=== PATIENT | female | born 1955 | race Caucasian/White ===

== ENCOUNTER → 2019-05-26 09:45 | Outpatient (CLI) | payer MEDICAID, SELFPAY ==
[2019-05-30 16:42] LABS: Trileptal-Oxcarbazepine 4 ug/mL (10-35)
== END ==
PROVIDERS: PCP Internal Medicine Infectious Disease
DX: G40.009 Localization-related (focal) (partial) idiopathic epilepsy and epileptic syndromes with seizures of localized onset, not intractable, without status epilepticus (principal)
CPT/HCPCS: 36415; 80201; 82542

== ENCOUNTER 2019-07-25 12:38 | Emergency (ER) | payer MEDICAID, SELFPAY ==
[2019-07-25 12:39] VITALS: BP 112/65; PULSE 105; RESP 30; TEMP 36.7; O2SAT 98; BMI 20.8
--- NOTE | 2019-07-25 12:56 | RAD_ITS ---
STUDY: X-RAY CHEST REASON FOR EXAM: Female, 64 years old. PT TO ED VIA EMS, PT HAD MULTIPLE SEIZURES TODAY. ONGOING COUGH WITH INTERMITTENT FEVERS. TECHNIQUE: AP and lateral views of the chest. COMPARISON: None. FINDINGS: EKG electrodes are seen. There is hyperinflation of the lungs consistent with chronic obstructive lung disease (COPD). There is no demonstrated pleural abnormality. Normal size heart. Normal mediastinum and ramiro. Normal visualized pulmonary arteries. Normal visualized aortic arch and descending thoracic aorta. There are mild degenerative changes of the visualized thoracic spine. Normal visualized ribs, clavicles, and shoulders. Surgical clips are seen in the right upper quadrant. RAD/Chest PA and Lateral IMPRESSION: Hyperinflation. Electronically Signed: Gordy Matias, at 14:11 EDT , Service support ,
--- NOTE | 2019-07-25 12:56 | EKG12_ITS ---
Test Reason : CP Blood Pressure : / mmHG Vent. Rate : 111 BPM Atrial Rate : 111 BPM P-R Int : 174 ms QRS Dur : 070 ms QT Int : 324 ms P-R-T Axes : 082 064 073 degrees QTc Int : 440 ms Sinus tachycardia Otherwise normal ECG Confirmed by VITOR DAVISON, CHERIE ([id number]), gsa coordinator ANDRES WEST ([id number]) on 07/31/2019 11:15:58 AM Referred By: BRIAN Confirmed By:FAYE ADLER MD
--- NOTE | 2019-07-25 12:59 | ED.DCSUM_ITS ---
- ER Visit Summary Date of Service: 07/25/19 Chief Complaint: Seizure History of Present Illness: The patient is a 64 F who presents with 3-4 seizures that occurred today. Family reports that they were generalized tonic-clonic seizures. Patient has a history of seizures. Patient states she was having a l eft frontal headache prior to the seizure. Patient denies any incontinence of urine or stool. Patient denies biting her tongue or cheek. Patient admits to a recent cough. Patient admits to some rhinorrhea. Patient admits to subjective chills. Patient admits to some dysuria and frequency. Son states the patient has been eating grapefruit recently. He reports that when the patient eats a lot of grapefruit she develops seizures. Physical Examination: Vital signs are stable. Patient is afebrile. Patient is in no acute distress. Oral mucosa is pink and moist. There are no abrasions of the oral mucosa or tongue. Neck is supple. Trachea is midline. There is no JVD noted. Heart was regular rate and rhythm. Lungs are clear and equal bilaterally. Abdomen is soft. Bowel sounds are normal. There is no tenderness. There is no rebound or guarding noted. Skin is warm dry. Cranial nerves II through XII are intact. There are no focal motor or sensory deficits noted. Extremities are intact. There is no calf tenderness or edema. Test Results: EKG showed sinus tachycardia with a rate of 111. There are no acute ST or T wave changes. PA and lateral chest x-ray was obtained. There is no acute cardiopulmonary process. This was interpreted by myself and the radiologist. CBC, comprehensive metabolic profile, and urinalysis were obtained and were essentially within normal limits. Rapid flu was negative. Rapid strep was negative. Emergency Department Course and Treatment: Patient did have a generalized tonic- clonic seizure here in the emergency department. Family states this was typical of her seizure that she had at home. Patient was given a dose of Ativan here. Patient was complaining of a headache after her seizure. Patient was given a dose of Tylenol for that. Patient was instructed to avoid eating grapefruit and grapefruit juice. Patient was instructed to continue her medications as previously prescribed. Patient was instructed to follow-up with her primary care physician in 5 to 7 days. Patient and family understood and were agreeable with the plan. All questions were answered. Disposition: Discharge home Impression: Seizure disorder with breakthrough seizure This note was generated with [employer] dictation software. It may contain incorrect words, spelling, and punctuation that were not noted in review of the chart prior to signing ED Disposition - Plan for ED Patient: Disposition: Home or Assisted Living Diagnosis: Seizure disorder Instructions: SEIZURE, Recurrent [Adult] Referrals: Deneen Gonzalez MD [Primary Care Provider] - 5-7 Days
[2019-07-25 13:12] LABS: Absolute Neutrophil Count 5.2 X10^3/uL (2.0-7.7); Basophil# 0.02 X10^3/uL; Basophil% 0.3 % (0-1); Eosinophil# 0.39 X10^3/uL; Eosinophils% 5.2 % (0-5); Hematocrit 37.6 % (37-47); Hemoglobin 11.6 g/dL (12.0-15.0); Lymphocyte % 17.5 % (19-41); Mean Corp Hgb Conc 30.9 g/dL (32-36); Mean Corpuscular Hgb 30.4 pg (27.0-32.0); Mean Corpuscular Volume 98.4 fL (81-99); Mean Platelet Vol. 10.5 fl (6.2-12.0); Monocyte# 0.56 X10^3/uL; Monocyte% 7.5 % (0-10); NRBC Flagged by Analyzer 0 % (0-5); Neutrophil # 5.15 X10^3/uL (2.7-7.7); Neutrophil % 69.2 % (47-70); Platelet Count 187 K/mm3 (150-450); RBC Distribution Width CV 13.6 % (11.6-14.6); RBC Distribution Width SD 48.9 fl (35.1-43.9); Red Blood Count 3.82 M/mm3 (4.2-5.4); White Blood Count 7.4 K/mm3 (4.4-11.0)
[2019-07-25 13:24] LABS: ALB/GLOB Ratio 0.8 RATIO (0.9-2.4); AST(SGOT) 13 U/L (15-37); Alanine Aminotransfer ALT/SGPT 15 U/L (13-56); Alkaline Phosphatase 76 U/L (45-117); Anion Gap 7 (5-15); BUN 23 mg/dL (7-18); BUN/Creat Ratio 22.5 RATIO (10-20); Calcium,Total 8.1 mg/dL (8.5-10.1); Chloride 108 mmol/L (98-107); Creatinine, Serum 1.02 mg/dL (0.55-1.02); EST Glomerular Filtration Rate 58 mL/min (>60); Est Glom Filt Rate - Afr Amer 70 mL/min (>60); Estimated Creatinine Clearance 48.12 ml/min; Glucose 125 mg/dL (74-106); Potassium 3.6 mmol/L (3.5-5.1); Sodium Level 141 mmol/L (136-145)
[2019-07-25] MEDS: 0.9% Normal Saline 1,000 ML 1000 ML IV (13:29)
--- NOTE | 2019-07-25 13:30 | ED.RN ---
PT FAMILYCALLS OUT PT SEIZING.PT IMMEDIATELY ALERT AND TALKING WITHIN 2 MINUTES OF SEIZURE. ATIVAN GIVEN IV
[2019-07-25] MEDS: LORazepam 2 MG/ML Syringe 1 MG IV (13:31)
[2019-07-25 13:33] VITALS: BP 124/60; PULSE 106; RESP 18; TEMP 36.6; O2SAT 99
[2019-07-25 14:23] LABS: Bacteria 0 SEEN /hpf (None Seen); Mucous, Urine 0 SEEN /hpf (<or=2+); Squamous Epithelial Cells - UA 0 SEEN /hpf (5-10); White Blood Cells 0 SEEN /hpf (0-5)
[2019-07-25 14:25] LABS: Color, Urine Yellow (Yellow); Glucose, Dipstick Normal (Normal); Ketone-Dipstick Negative (Negative); Leukocyte Esterase-Dipstick Negative /ul (Negative); Nitrite-Dipstick Negative (Negative); Occult Blood-Urine 50 /ul (Negative); Protein-Dipstick Negative (Negative); Urine Bilirubin Dipstick Negative (Negative); Urine Clarity Clear (Clear); Urine Urobilinogen Normal (Normal)
[2019-07-25 14:34] LABS: Red Blood Cells-Urine 0-5 SEEN /hpf (0-5)
[2019-07-25] MEDS: Acetaminophen 325 MG Tablet 1000 MG PO (15:25)
--- NOTE | 2019-07-25 15:27 | ED.RN ---
THIS RN CALLED TO ROOM BY PT'S SON, STATES SHE'S HAVING ANOTHER SEIZURE. PT IN BED WITH ALL EXTREMITIES MOVING IN RANDOM FASHION. EPISODE LASTED APPROX 60 SECONDS. PT OPENED EYES AFTER AND ABLE TO SIT UP AND SPEAK, TAKE ORAL MEDS. PT WAS AWARE OF ALL CONVERSATION BETWEEN THIS RN AND SON DURING EPISODE. MD AND PRIMARY RN NOTIFIED, WILL CONTINUE TO OBSERVE AT THIS TIME.
[2019-07-25 16:09] VITALS: BP 91/49; PULSE 100; RESP 16; TEMP 37.9; O2SAT 100
== END 2019-07-25 16:10 | disposition home or self-care (01) ==
PROVIDERS: Emergency Provider Emergency Medicine; PCP Internal Medicine Infectious Disease
DX: G40.409 Other generalized epilepsy and epileptic syndromes, not intractable, without status epilepticus (principal); E11.9 Type 2 diabetes mellitus without complications; Z79.84 Long term (current) use of oral hypoglycemic drugs
CPT/HCPCS: 71046; 80053; 81001; 85025; 87804; 87880; 93005; 96361; 96374; 99285; J7030; A4216

== ENCOUNTER → 2020-02-07 | Outpatient (CLI) | payer MEDICAID, SELFPAY ==
--- NOTE | 2020-02-07 08:40 | US_ITS ---
STUDY: ABDOMINAL ULTRASOUND - RIGHT UPPER QUADRANT REASON FOR VISIT: Female, 64 years old ABNORMAL WEIGHT LOSS WITH NAUSEA AND VOMITING TECHNIQUE: Ultrasound evaluation of the right upper quadrant was performed with real-time and static vincent-scale imaging. TECHNICAL QUALITY: Adequate. COMPARISON: None. FINDINGS: Liver: The liver measures 17.4 cm. There is normal echogenicity of the liver. The bile ducts are within normal limits. There is hepatic color flow. The direction of portal flow is hepatopetal. The portal vein is prominent measuring 1.3 cm in AP dimension. There is no demonstrated mass lesion. Gallbladder: The patient is status post cholecystectomy. Common Bile Duct (C.B.D.): The common bile duct measures 5 mm. Pancreas: Normal size of the head, body and tail of the pancreas. There is normal echogenicity of the pancreas. There is no demonstrated pancreatic mass or cyst. Right Kidney: Normal size of the right kidney. The right kidney measures 9.7 cm x 4.8 cm x 3.4 cm. Normal renal cortex. The right cortex measures 1.1 cm. There is no demonstrated renal mass or cyst. There is no right hydronephrosis. US/Abdomen Limited IMPRESSION: Status post cholecystectomy. No abnormality is seen. Electronically Signed: Gordy Matias, at 14:34 EDT , Service support ,
--- NOTE | 2020-02-07 10:00 | RAD_ITS ---
STUDY: X-RAY - ESOPHAGUS (BARIUM SWALLOW) with FLUOROSCOPY REASON FOR EXAM: Female, 64 years old. Dysphagia prox esoph. Soreness prox esoph TECHNIQUE: 20 view(s) of the esophagus were obtained following swallowing of barium. FLUOROSCOPY TIME (if supplied): (0:35) minutes/seconds COMPARISON: None. FINDINGS: There is no demonstrated esophageal foreign body. There is no demonstrated stricture or mucosal abnormality. Normal gastroesophageal junction, without a demonstrated hiatal hernia. The patient ingested a 12 mm tablet of barium without any difficulty. There is atherosclerotic tortuosity of the aortic arch and descending thoracic aorta. Normal visualized pulmonary parenchyma. Normal visualized osseous structures of the thorax. RAD/Esophagus Single Contrast IMPRESSION: Normal plain film x-ray examination (barium swallow) of the esophagus. Electronically Signed: Gordy Matias, at 15:22 EDT , Service support ,
== END | disposition home or self-care (01) ==
LOC: RAD 08:38
PROVIDERS: PCP Family Medicine
DX: R13.10 Dysphagia, unspecified (principal); R11.2 Nausea with vomiting, unspecified; R63.4 Abnormal weight loss
CPT/HCPCS: 74220; 76705

== ENCOUNTER 2020-03-21 19:17 | Emergency (ER) | payer MEDICAID, SELFPAY ==
[2020-03-21 19:19] VITALS: BP 134/65; PULSE 89; RESP 18; TEMP 37; O2SAT 100; BMI 25.4
--- NOTE | 2020-03-21 19:23 | ED.VIS.GEN ---
History of Present Illness Chief Complaint: Lower Extremity Injury Informant: Patient Onset: Today Context: Sudden Onset Timing: Continuous Current Severity: Moderate Maximum Severity: Moderate Narrative: Patient is a 64-year-old female who presents to the emergency department with left ankle and foot injury. She states that she normally ambulates with a cane. She heard a commotion from her backyard. She states she walked out because she thought it was her dogs. She twisted her foot and fell to the ground. She has been able to bear weight because of pain. She denies striking her head. She denies other injury. She is otherwise been in her normal state of health. Prior similar symptoms: No Recent Illness/Hospitalization: No Past Medical History - Allergies and Home Meds Allergies/Adverse Reactions: Allergies No Known Allergies Allergy (Verified 07/25/19 12:38) Primary Care Physician: Maynor Singh MD [Primary Care Provider] - Prior records reviewed: Yes Past Medical History: - - Seizures, migraines, COPD Surgical History: noncontributory Smoking Status: Never smoker Review of Systems General: Denies: Chills, Fever, Sweats Eyes: Denies: Visual changes - bilaterally, Diplopia ENT: Denies: Rhinorrhea, Sore throat Cardiovascular: Denies: Chest pain, Palpitations Respiratory: Denies: Dyspnea, Cough, Dyspnea on exertion Gastrointestinal: Denies: Abdominal pain, Nausea, Vomiting, Diarrhea, Melena, Hematochezia Genitourinary: Denies: Dysuria, Hematuria, Frequency Musculoskeletal: Denies: Back pain, Extremity Pain Skin: Denies: Rash, Wounds Neurological: Denies: Headache, Weakness, Numbness Physical Exam Vital Signs/Narrative: Vital Signs Temp Pulse Resp BP Pulse Ox 03/21/20 19:19 98.6 F 89 18 134/65 H 100 Inital Vital Signs reviewed: Yes General: Well nourished, Well developed, No Acute Distress Head: Normocephalic, Atraumatic Eyes: Perrl, EOMI ENT: Moist mucous membranes, No rhinorrhea Neck: Supple, Nontender Cardiovascular: Regular rate, Regular rhythm, No murmurs Respiratory: No distress, CTA bilaterally, Chest nontender Abdomen: Soft, Nontender, Nondistended, Normal bowel sounds Back: Nontender, Normal Inspection Extremities: No edema, Tenderness - Tender over the left lateral malleolus. No pain at the proximal fibula. Mild pain at the head of the fifth metatarsal. Baugh negative. Normal pulses. Skin: Normal color, No rash Neurological: Alert, Oriented x3, Cranial nerves II-XII grossly intact, Normal Strength, Normal Sensation Psychological: Normal affect, Normal Mood Diagnostic/Tx/Re-eval Clinical Impression(s) from Imaging Studies Ankle X-Ray 03/21/20 19:30 IMPRESSION: Soft tissue swelling without underlying fracture or dislocation. Electronically Signed: Sharon Heart MD at 20:17 EST , Service support , Foot X-Ray 03/21/20 19:30 IMPRESSION: Negative for fracture or dislocation. Dorsal enthesophyte and plantar spurring of the calcaneus. Electronically Signed: Sharon Heart MD at 20:16 EST , Service support , - Medical Decision Making The patient presents with left ankle and foot pain. She is neurovascular intact. Baugh was negative. I did obtain plain films. These were reviewed by myself and the radiologist. There is no evidence of acute fracture or dislocation. I do feel that her symptoms are likely secondary to ligamentous sprain. Patient was placed in a boot orthosis for comfort. She will be discharged home. Impression 1. Left lateral ankle sprain ED Disposition - Plan for ED Patient: Instructions: ED Sprain Ankle Referrals: Maynor Singh MD [Primary Care Provider] -
[2020-03-21] MEDS: Morphine 4 MG/ML Syringe IM (19:29)
--- NOTE | 2020-03-21 19:30 | RAD_ITS ---
STUDY: X-RAY - LEFT ANKLE REASON FOR EXAM: Female, 64 years old. FOOT WAS NUMB WHEN SHE WENT TO STAND AND SHE FELL. LEFT LATERAL MALLEOLAR PAIN AND SWELLING TECHNIQUE: 3 view(s) of the ankle. COMPARISON: None. FINDINGS: Normal visualized distal tibia and fibula. Normal medial and lateral malleoli. Normal tibiotalar articulation and ankle mortise. Normal visualized talus and calcaneus. Dorsal enthesophyte and plantar spurring of the calcaneus The visualized subtalar, talonavicular, calcaneocuboid and tarsal articulations are normal. Soft tissue swelling. RAD/Ankle min 3 Views IMPRESSION: Soft tissue swelling without underlying fracture or dislocation. Electronically Signed: Sharon Heart MD at 20:17 EST , Service support ,
--- NOTE | 2020-03-21 19:30 | RAD_ITS ---
STUDY: X-RAY - LEFT FOOT CLINICAL: Female, 64 years old. FOOT WAS NUMB WHEN SHE WENT TO STAND UP AND SHE FELL. PAIN LATERAL MALLEOLAR AREA TECHNIQUE: 3 view(s) of the foot. COMPARISON: None. FINDINGS: Normal talus, calcaneus, and tarsal bones. Dorsal enthesophyte and plantar spur of the calcaneus Normal visualized subtalar, talonavicular, calcaneocuboid, tarsal and tarsometatarsal articulations. Normal metatarsi. Normal metatarsophalangeal joint of the great toe. Normal tibial and fibular sesamoid bones. Normal interphalangeal joint of the great toe. Normal phalanges of the great toe. Normal second through fifth metatarsophalangeal joints. Normal interphalangeal joints and phalanges of the lesser toes. The soft tissue structures are unremarkable. RAD/Foot min 3 Views IMPRESSION: Negative for fracture or dislocation. Dorsal enthesophyte and plantar spurring of the calcaneus. Electronically Signed: Sharon Heart MD at 20:16 EST , Service support ,
[2020-03-21 20:54] VITALS: RESP 18
== END 2020-03-21 20:55 | disposition home or self-care (01) ==
LOC: ED 20:47
PROVIDERS: Emergency Provider Emergency Medicine; PCP Family Medicine
DX: S93.402A Sprain of unspecified ligament of left ankle, initial encounter (principal); J44.9 Chronic obstructive pulmonary disease, unspecified; X50.1XXA Overexertion from prolonged static or awkward postures, initial encounter; Y93.01 Activity, walking, marching and hiking; Y92.007 Garden or yard of unspecified non-institutional (private) residence as the place of occurrence of the external cause; Y99.8 Other external cause status
CPT/HCPCS: 73610; 73630; 96372; 99284

== ENCOUNTER 2020-04-09 19:28 | Emergency (ER) | payer MEDICAID, SELFPAY ==
[2020-04-09 19:32] VITALS: BP 153/72; PULSE 81; RESP 18; TEMP 36.3; O2SAT 98; BMI 24.7
[2020-04-09 21:29] VITALS: BP 134/78; PULSE 75
--- NOTE | 2020-04-09 21:30 | ED.DCSUM_ITS ---
History of Present Illness Chief Complaint: Seizure Narrative: This patient is a 64-year-old female who presents after a seizure. She had a seizure that lasted about 3 to 4 minutes per family. The patient does have a history of a seizure disorder. She is on topiramate and carbamazepine. She has been compliant. Her last seizure was about 1 month ago. She has had some urinary incontinence in the mornings but otherwise no recent illness. No fever chest pain shortness of breath cough vomiting or diarrhea. She complains of mild headache. Past Medical History - Allergies and Home Meds Allergies/Adverse Reactions: Allergies No Known Allergies Allergy (Verified 04/09/20 19:32) Primary Care Physician: Maynor Singh MD [Primary Care Provider] - Past Medical History: - - Diabetes, hyperlipidemia, epilepsy Surgical History: noncontributory Smoking Status: Never smoker Review of Systems All systems negative except as indicated General: Denies: Fever - Disorder Eyes: Denies: Visual changes - bilaterally ENT: Denies: Bilateral ear pain Cardiovascular: Denies: Chest pain Respiratory: Denies: Dyspnea Gastrointestinal: Denies: Abdominal pain, Nausea, Vomiting, Diarrhea Genitourinary: Reports: - - Urinary incontinence Musculoskeletal: Denies: Myalgias, Arthralgias Neurological: Reports: Headache, - - Seizure Physical Exam Vital Signs/Narrative: Vital Signs Temp Pulse Resp BP Pulse Ox 04/09/20 21:29 75 134/78 H 04/09/20 19:32 97.4 F L 81 18 153/72 H 98 Inital Vital Signs reviewed: Yes General: Well nourished, Well developed Head: Normocephalic Eyes: EOMI ENT: Moist mucous membranes Neck: Supple Cardiovascular: Regular rate, Regular rhythm Respiratory: No distress, CTA bilaterally Abdomen: Soft, Nontender Extremities: Nontender Skin: Normal color Neurological: Alert, - - No focal or lateralizing neurological deficits normal strength normal sensation Psychological: Normal affect Diagnostic/Tx/Re-eval Laboratory Results 04/09/20 04/09/20 04/09/20 21:40 21:40 21:40 WBC 8.3 RBC 4.05 L Hgb 12.7 Hct 39.0 MCV 96.3 MCH 31.4 MCHC 32.6 RDW Std Deviation 42.5 RDW Coeff of Debra 12.1 Plt Count 221 MPV 10.0 Immature Gran % (Auto) 0.400 Neut % (Auto) 70.8 H Lymph % (Auto) 16.7 L [place] % (Auto) 7.3 Eos % (Auto) 4.2 Baso % (Auto) 0.6 Absolute Neuts (auto) 5.9 Absolute Lymphs (auto) 1.39 Nucleated RBC % 0 Sodium 138 Potassium 5.2 H Chloride 106 Carbon Dioxide 30.0 Anion Gap 2 L BUN 16 Creatinine 1.34 H Estim Creat Clear Calc 36.63 Est GFR (MDRD) Af Amer 51 L Est GFR (MDRD) Non-Af 42 L BUN/Creatinine Ratio 11.9 Glucose 141 H Calcium 8.3 L Urine Color Urine Clarity Urine pH Ur Specific [place] Urine Protein Urine Glucose (UA) Urine Ketones Urine Occult Blood Urine Nitrite Urine Bilirubin Urine Urobilinogen Ur Leukocyte Esterase Urine RBC Urine WBC Ur Squamous Epith Cells Urine Bacteria Urine Mucus Carbamazepine < 0.5 L 04/09/20 21:50 WBC RBC Hgb Hct MCV MCH MCHC RDW Std Deviation RDW Coeff of Debra Plt Count MPV Immature Gran % (Auto) Neut % (Auto) Lymph % (Auto) [place] % (Auto) Eos % (Auto) Baso % (Auto) Absolute Neuts (auto) Absolute Lymphs (auto) Nucleated RBC % Sodium Potassium Chloride Carbon Dioxide Anion Gap BUN Creatinine Estim Creat Clear Calc Est GFR (MDRD) Af Amer Est GFR (MDRD) Non-Af BUN/Creatinine Ratio Glucose Calcium Urine Color Yellow Urine Clarity Clear Urine pH 6.0 Ur Specific [place] 1.020 Urine Protein Negative Urine Glucose (UA) 100 H Urine Ketones Negative Urine Occult Blood Negative Urine Nitrite Negative Urine Bilirubin Negative Urine Urobilinogen 1 H Ur Leukocyte Esterase 25 H Urine RBC 0 SEEN Urine WBC 0-5 SEEN Ur Squamous Epith Cells 0 SEEN Urine Bacteria RARE Urine Mucus 0 SEEN Carbamazepine - Medical Decision Making Labs as above notable for mild elevation of creatinine from previous. Patient was given IV fluids. No UTI. Carbamazepine level was undetectable. Advised to take all medications as prescribed and follow-up with her primary care provider. She does understand return for new or worsening symptoms and was discharged home. ED Disposition - Plan for ED Patient: Disposition: Home or Assisted Living Diagnosis: Seizure Instructions: ED Seizure, Recurrent (Adult) Referrals: Maynor Singh MD [Primary Care Provider] -
[2020-04-09 21:45] LABS: Absolute Lymphocyte Count 1.39 X10^3/uL (0.83-4.51); Absolute Neutrophil Count 5.9 X10^3/uL (2.0-7.7); Basophil# 0.05 X10^3/uL; Basophil% 0.6 % (0-1); Eosinophil# 0.35 X10^3/uL; Eosinophils% 4.2 % (0-5); Hemoglobin 12.7 g/dL (12.0-15.0); Lymphocyte # 1.39 X10^3/ul (4.0); Lymphocyte % 16.7 % (19-41); Mean Corp Hgb Conc 32.6 g/dL (32-36); Mean Corpuscular Hgb 31.4 pg (27.0-32.0); Mean Corpuscular Volume 96.3 fL (81-99); Monocyte# 0.61 X10^3/uL; Monocyte% 7.3 % (0-10); NRBC Flagged by Analyzer 0 % (0-5); Neutrophil % 70.8 % (47-70); Platelet Count 221 K/mm3 (150-450); RBC Distribution Width CV 12.1 % (11.6-14.6); RBC Distribution Width SD 42.5 fl (35.1-43.9); Red Blood Count 4.05 M/mm3 (4.2-5.4); White Blood Count 8.3 K/mm3 (4.4-11.0)
[2020-04-09 22:00] LABS: Mucous, Urine 0 SEEN /hpf (<or=2+); Red Blood Cells-Urine 0 SEEN /hpf (0-5); Squamous Epithelial Cells - UA 0 SEEN /hpf (5-10)
[2020-04-09 22:03] LABS: Color, Urine Yellow (Yellow); Glucose, Dipstick 100 mg/dl (Normal); Ketone-Dipstick Negative (Negative); Leukocyte Esterase-Dipstick 25 /ul (Negative); Nitrite-Dipstick Negative (Negative); Occult Blood-Urine Negative /ul (Negative); Protein-Dipstick Negative (Negative); Urine Bilirubin Dipstick Negative (Negative); Urine Clarity Clear (Clear); Urine Urobilinogen 1 mg/dl (Normal)
[2020-04-09 22:06] LABS: Anion Gap 2 (5-15); BUN 16 mg/dL (7-18); BUN/Creat Ratio 11.9 RATIO (10-20); Calcium,Total 8.3 mg/dL (8.5-10.1); Chloride 106 mmol/L (98-107); Creatinine, Serum 1.34 mg/dL (0.55-1.02); EST Glomerular Filtration Rate 42 mL/min (>60); Est Glom Filt Rate - Afr Amer 51 mL/min (>60); Estimated Creatinine Clearance 36.63 ml/min; Glucose 141 mg/dL (74-106); Potassium 5.2 mmol/L (3.5-5.1); Sodium Level 138 mmol/L (136-145)
[2020-04-09 22:11] LABS: Bacteria RARE /hpf (None Seen); White Blood Cells 0-5 SEEN /hpf (0-5)
[2020-04-09 22:43] LABS: Carbamazepine (Tegretol) < 0.5 ug/mL (4.0-12.0)
[2020-04-15 15:34] LABS: Topiramate < 1.0 ug/mL (2.0-25.0)
== END 2020-04-09 23:21 | disposition home or self-care (01) ==
PROVIDERS: Emergency Provider Emergency Medicine; PCP Family Medicine
DX: G40.909 Epilepsy, unspecified, not intractable, without status epilepticus (principal); E78.5 Hyperlipidemia, unspecified; E11.9 Type 2 diabetes mellitus without complications; Z79.84 Long term (current) use of oral hypoglycemic drugs; Z79.899 Other long term (current) drug therapy
CPT/HCPCS: 80048; 80156; 80201; 81001; 85025; 99285; A4216

== ENCOUNTER 2020-04-20 11:15 | Emergency (ER) | payer MEDICAID, SELFPAY ==
[2020-04-20 11:18] VITALS: BP 154/91; PULSE 74; RESP 16; TEMP 36.7; O2SAT 98; BMI 24.0
--- NOTE | 2020-04-20 12:38 | ED.VIS.GEN ---
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 She has been having diarrhea and supposed have a colonoscopy on Wednesday. She tells me that today while having a bowel movement she felt something come out. She was unable to get it back in so she asked her sister to look who advised her to call the ambulance to come to the hospital. Past Medical History - Allergies and Home Meds Allergies/Adverse Reactions: Allergies No Known Allergies Allergy (Verified 04/20/20 11:18) Primary Care Physician: Maynor Singh MD [Primary Care Provider] - As Needed Surgical History: noncontributory Smoking Status: Never smoker Review of Systems General: Denies: Chills, Fever, Sweats Eyes: Denies: Visual changes - bilaterally, Diplopia ENT: Denies: Rhinorrhea, Sore throat Cardiovascular: Denies: Chest pain, Palpitations Respiratory: Denies: Dyspnea, Cough, Dyspnea on exertion Gastrointestinal: Denies: Abdominal pain, Nausea, Vomiting, Diarrhea, Melena, Hematochezia Genitourinary: Denies: Dysuria, Hematuria, Frequency Musculoskeletal: Denies: Back pain, Extremity Pain Skin: Denies: Rash, Wounds Neurological: Denies: Headache, Weakness, Numbness Physical Exam Vital Signs/Narrative: Vital Signs Temp Pulse Resp BP Pulse Ox 04/20/20 11:18 98.1 F 74 16 154/91 H 98 Inital Vital Signs reviewed: Yes General: Well nourished, Well developed, No Acute Distress Head: Normocephalic, Atraumatic Eyes: Perrl, EOMI ENT: Moist mucous membranes, No rhinorrhea Neck: Supple, Nontender Cardiovascular: Regular rate, Regular rhythm, No murmurs Respiratory: No distress, CTA bilaterally, Chest nontender Abdomen: Soft, Nontender, Nondistended, Normal bowel sounds Rectal: - - There is a large rectal prolapse with swollen tissue. Back: Nontender, Normal Inspection Extremities: Nontender, No edema Skin: Normal color, No rash Neurological: Alert, Oriented x3, Cranial nerves II-XII grossly intact, Normal Strength, Normal Sensation Psychological: Normal affect, Normal Mood Diagnostic/Tx/Re-eval - Medical Decision Making Sugar was copiously applied to the rectal mucosa. Using direct pressure the rectum was reduced. The procedure was started but needed to be rapidly terminated due to a coding patient. After that event the procedure is restarted. Patient was advised to talk to her doctors on Wednesday when she goes in for her colonoscopy. ED Disposition - Plan for ED Patient: Disposition: Home or Assisted Living Diagnosis: Rectal prolapse Instructions: ED Rectal Prolapse Referrals: Maynor Singh MD [Primary Care Provider] - As Needed Additional Instructions: You need to inform your doctor on Wednesday that you were in the emergency room with a large rectal prolapse. You may need to see colorectal surgery.
[2020-04-20 12:52] VITALS: BP 124/70; PULSE 74; RESP 16; O2SAT 98
== END 2020-04-20 13:58 | disposition home or self-care (01) ==
LOC: ED 12:43
PROVIDERS: Emergency Provider Emergency Medicine; PCP Family Medicine
DX: K62.3 Rectal prolapse (principal)
CPT/HCPCS: 99284

== ENCOUNTER → 2020-06-03 13:34 | Outpatient (CLI) | payer MEDICARE, MEDICAID, SELFPAY ==
[2020-05-21 08:47] VITALS: BMI 20.8
--- NOTE | 2020-06-03 13:37 | CT_ITS ---
STUDY: CT CHEST WITHOUT CONTRAST REASON FOR EXAM: Female, [address] 2019, GROUND GLASS OPACITIES AND WEIGHT LOSS RADIATION DOSAGE (If Supplied By Facility): CTDIvol = ( 6.81 ) mGy, DLP = ( 272.13 ) mGycm TECHNIQUE: Transaxial imaging was performed without the administration of intravenous contrast material. Multiplanar coronal and sagittal images were reformatted. Individualized dose optimization techniques were used for this CT. COMPARISON: None. FINDINGS: There is evidence of bronchiectasis with a reticular nodular pattern in both upper lobes worse in the right lung apex. Mild degree of tree in bud appearance in the right lower lobe. There is no demonstrated pleural abnormality. There are calcifications of the coronary arteries. There are multiple small lymph nodes within the mediastinum, which are normal in size and morphology most compatible with reactive lymph hyperplasia. Normal hilar regions. Normal unenhanced pulmonary arteries. There is atherosclerotic calcification of the aortic arch with tortuosity and elongation of the aortic arch and descending thoracic aorta. There are degenerative changes of the thoracic spine. Is evidence of a prior surgery level of the gastroesophageal junction. CT/Chest without Contrast IMPRESSION: Bronchiectasis in a reticulonodular pattern in both upper lobes worse in the right lung apex. Similar appearance in the right lower lobe. Electronically Signed: Gordy Matias MD at 14:35 EST , Service support ,
== END ==
PROVIDERS: PCP Family Medicine; Referring Provider Internal Medicine Critical Care Medicine; Visit Provider Internal Medicine Critical Care Medicine
DX: R63.4 Abnormal weight loss (principal); R93.89 Abnormal findings on diagnostic imaging of other specified body structures
CPT/HCPCS: 71250

== ENCOUNTER → 2020-07-09 09:26 | Outpatient (CLI) | payer MEDICARE, MEDICAID, SELFPAY ==
[2020-05-21 08:47] VITALS: BMI 20.8
--- NOTE | 2020-07-09 13:46 | PFTCOMP_ITS ---
COMPLETE PULMONARY FUNCTION TEST INTERPRETATION Brief HPI: Patient is a 65 year old female, currently under the care of myself, who presents to [facility] for complete pulmonary function tests secondary to diagnosis of cough. Respiratory therapist reports good effort and reproducible results. Interpretation: Forced expiration spirometry shows a mild large airways obstructive ventilatory defect with an FEV1 of 75% predicted. There is no significant bronchodilator response by strict ATS criteria. Spirograms are of good quality and plateau slowly, indicating slowly emptying areas of the lungs. The respiratory flow volume loop shows decreased expiratory flow rates at high lung volumes consistent with small airways obstruction. Lung volumes by body plethysmography show an elevated total lung capacity at 6.47 L, 133% predicted. FRC and RV are elevated out of proportion. Lung volume measurements are consistent with hyperinflation and air-trapping. Diffusion capacity by carbon monoxide is normal at 103% predicted. The airway resistance is elevated. No previous pulmonary function tests were available for review. Impression: Irreversible mild large airways obstructive ventilatory defect resulting in air trapping with hyperinflation, but preserved diffusion capacity.
== END ==
PROVIDERS: PCP Family Medicine; Referring Provider Internal Medicine Critical Care Medicine; Visit Provider Internal Medicine Critical Care Medicine
DX: R05 Cough (principal)
CPT/HCPCS: 94060; 94726; 94729

== ENCOUNTER → 2020-07-10 09:31 | Outpatient (CLI) | payer MEDICARE, MEDICAID, SELFPAY ==
[2020-05-21 08:47] VITALS: BMI 20.8
[2020-07-10 10:02] VITALS: PULSE 82; PULSE 84; PULSE 92; PULSE 94; PULSE 96; PULSE 97; PULSE 98; O2SAT 96; O2SAT 97; O2SAT 98
--- NOTE | 2020-07-10 12:51 | PCM.PSN.6M ---
PSN 6 Minute Walk Test - 6 Minute Walk Test 6 Minute Walk Test: 6 Minute Walk Test PSN:6-Minute Walk Test Start: 07/10/20 10:02 Freq: Status: Active Protocol: [id number] Document 07/10/20 10:02 [facility] (Rec: 07/10/20 10:06 [facility] [id number]) 6 Minute Walk Test Date Performed 07/10/20 Time Performed 09:45 Height 5 ft 4 in Weight: 49.895 kg Weight in Pounds 110.[address]: Dr Iniguez Assistive device used: Cane Pre-test Oxygen Delivery Method Room Air Pulse Ox (%) 97 Pulse Rate (60-100 beats/min) 84 Dyspnea Rashmi Scale (0-10) 0 Exertion Rashmi Scale (6-20) 6 1st minute Oxygen Delivery Method Room Air Pulse Ox (%) 96 Pulse Rate (60-100 beats/min) 92 2nd minute Oxygen Delivery Method Room Air Pulse Ox (%) 96 Pulse Rate (60-100 beats/min) 97 3rd minute Oxygen Delivery Method Room Air Pulse Ox (%) 97 Pulse Rate (60-100 beats/min) 98 4th minute Oxygen Delivery Method Room Air Pulse Ox (%) 98 Pulse Rate (60-100 beats/min) 98 5th minute Oxygen Delivery Method Room Air Pulse Ox (%) 96 Pulse Rate (60-100 beats/min) 94 6th minute Oxygen Delivery Method Room Air Pulse Ox (%) 97 Pulse Rate (60-100 beats/min) 96 Dyspnea Rashmi Scale (0-10) 2 Exertion Rashmi Scale (6-20) 11 Post-test Oxygen Delivery Method Room Air Pulse Ox (%) 96 Pulse Rate (60-100 beats/min) 82 Full Laps Walked 11 Partial Lap, Number of Tiles Walked 25 Total Distance Walked (ft) 674 - Interpretation Interpretation: The patient was able to ambulate 674 feet over the course of 6 minutes on room air with the assistance of a cane in no breaks. The patient experienced no significant desaturation or tachycardia during testing. These findings are consistent with a musculoskeletal limitation exercise tolerance. - Recommendations Recommendations: No supplemental oxygen is indicated at this time. Repeat evaluation may be necessary if musculoskeletal condition improves
== END ==
PROVIDERS: PCP Family Medicine; Referring Provider Internal Medicine Critical Care Medicine; Visit Provider Internal Medicine Critical Care Medicine
DX: R05 Cough (principal); R63.4 Abnormal weight loss
CPT/HCPCS: 94618

== ENCOUNTER 2020-11-06 17:09 | Emergency (ER) | payer MEDICARE, MEDICAID, SELFPAY ==
[2020-09-10 07:34] VITALS: BMI 25.9
[2020-11-06 17:12] VITALS: BP 164/85; PULSE 88; RESP 16; TEMP 36.8; O2SAT 99; BMI 27.6
[2020-11-06 17:26] VITALS: BP 146/97; BP 151/61; BP 159/83; PULSE 82; PULSE 96
--- NOTE | 2020-11-06 17:28 | EX.ED.DYSGE1 ---
HPI History of Present Illness Chief Complaint: Seizure Narrative Narrative: Patient presents after a seizure. She has absence seizure she has 1-2 a month, however today seizure although it was similar to prior absence seizure's had a prolonged postictal state of 1 to 2 minutes, normally she has no postictal state. She has had the seizures in the past where she had prolonged postictal state but this is not the norm. Last seizure like today was about 4 to 5 months ago. She has no fever chills cough or congestion. She feels slightly lightheaded when she stands up for the past few days. She has no abdominal pain no back pain. No lower extremity edema. [facility] Medical History (Updated 11/06/20 @ 19:[address] Serge Bai MD) Diabetes H/O absence seizures Home Medications buspirone 10 mg PO DAILY 11/06/20 [History Last Taken Unknown] famotidine 20 mg PO QHS 11/06/20 [History Last Taken Unknown] metformin 500 mg PO DAILY 11/06/20 [History Last Taken Unknown] metronidazole 500 mg PO BID 11/06/20 [History Last Taken Unknown] ondansetron 8 mg PO Q12H PRN 11/06/20 [History Last Taken Unknown] oxcarbazepine 150 mg PO BID 11/06/20 [History Last Taken Unknown] pantoprazole 40 mg PO BID 11/06/20 [History Last Taken Unknown] simvastatin 40 mg PO DAILY 11/06/20 [History Last Taken Unknown] sumatriptan succinate 100 mg PO Q2H PRN 11/06/20 [History Last Taken Unknown] Allergy/AdvReac Type Severity Reaction Status Date / Time corn AdvReac Upset Verified 11/06/20 17:11 Stomach Social History Smoking Status: Never smoker ROS ROS ED ROS Narrative Past medical history: Reviewed Medications: Reviewed Social history: Noncontributory Review of systems: All systems negative except as indicated General: No fever Eyes: No visual changes ENT: No upper airway congestion, normal voice Neck: No neck pain Cardiovascular: No chest pain Respiratory: No shortness of breath or cough Gastrointestinal: No abdominal pain, nausea vomiting or diarrhea Genitourinary: No dysuria Musculoskeletal: Denies myalgias no difficulty with ambulation Skin: No rash Neurological: Absence seizure as in HPI Psych: No recent behavioral changes Hematologic: No easy bleeding or easy bruising EXAM Physical Exam Narrative Exam Narrative: Physical exam General: Well nourished, Well developed, No Acute Distress Head: Normocephalic, Atraumatic Eyes: Conjunctiva not pale ENT: Somewhat dry Neck: Supple, Nontender, No lymphadenopathy Cardiovascular: Regular rate, Regular rhythm Respiratory: No distress, CTA bilaterally Abdomen: Soft, Nontender, Nondistended Back: Nontender, Normal Inspection. Negative for: CVA tenderness Extremities: Nontender, No edema Skin: Normal color, No rash Neurological: Alert, Normal Strength, Normal Sensation Psychological: Normal affect Const Vital Signs: 11/06/20 17:12 11/06/20 17:26 11/06/20 19:14 Temperature 98.2 F Temperature Source Oral Pulse Rate 88 85 Pulse Rate [Lying] 82 Pulse Rate [Sitting] 96 Pulse Rate [Standing] 96 Respiratory Rate 16 17 Blood Pressure 164/85 H 155/83 H Blood Pressure [Lying] 151/61 H Blood Pressure [Sitting] 159/83 H Blood Pressure [Standing] 146/97 H Blood Pressure Mean 111 107 Blood Pressure Mean [Lying] 91 Blood Pressure Mean [Sitting] 108 Blood Pressure Mean [Standing] 113 Pulse Ox 99 99 Oxygen Delivery Method Room Air Room Air MDM MDM MDM Narrative Medical decision making narrative: Patient has a normal ED work-up. She appears well she was slightly dehydrated and I hydrated her. Otherwise I will discharge her in stable condition with neurology follow-up Lab Data Labs: Laboratory Results - last 24 hr 11/06/20 11/06/20 11/06/20 17:20 17:20 18:35 WBC 6.6 RBC 4.31 Hgb 12.9 Hct 39.7 MCV 92.1 MCH 29.9 MCHC 32.5 RDW Std Deviation 41.6 RDW Coeff of Debra 12.2 Plt Count 236 MPV 10.3 Immature Gran % (Auto) 0.300 Neut % (Auto) 72.2 H Lymph % (Auto) 18.2 L [place] % (Auto) 8.1 Eos % (Auto) 0.6 Baso % (Auto) 0.6 Absolute Neuts (auto) 4.7 Absolute Lymphs (auto) 1.19 Nucleated RBC % 0 Sodium 134 L Potassium 4.4 Chloride 101 Carbon Dioxide 28.0 Anion Gap 5 BUN 18 Creatinine 1.22 H Estim Creat Clear Calc 40.23 Est GFR (MDRD) Af Amer 57 L Est GFR (MDRD) Non-Af 47 L BUN/Creatinine Ratio 14.8 Glucose 252 H Calcium 8.6 Total Bilirubin 0.40 AST 15 ALT 14 Alkaline Phosphatase 104 Total Protein 7.9 Albumin 3.8 Globulin 4.1 Albumin/Globulin Ratio 0.9 Urine Color Yellow Urine Clarity Clear Urine pH 6.5 Ur Specific [place] 1.010 Urine Protein Negative Urine Glucose (UA) 50 H Urine Ketones Negative Urine Occult Blood Negative Urine Nitrite Negative Urine Bilirubin Negative Urine Urobilinogen Normal Ur Leukocyte Esterase Negative Urine RBC 0 SEEN Urine WBC 0 SEEN Ur Squamous Epith Cells 0 SEEN Urine Bacteria 0 SEEN Urine Mucus 0 SEEN Discharge Plan Triage Chief Complaint: Seizure ED Provider: Serge Bai Dx/Rx/DC Orders Clinical Impression: Seizure Instructions: ED Seizure, Recurrent (Adult) Prescriptions: No Action metformin 500 mg Tablet 500 mg PO DAILY RF: 0 oxcarbazepine 150 mg Tablet 150 mg PO BID RF: 0 sumatriptan succinate 100 mg Tablet 100 mg PO Q2H PRN (Reason: Headache) RF: 0 metronidazole 500 mg Tablet 500 mg PO BID RF: 0 simvastatin 40 mg Tablet 40 mg PO DAILY RF: 0 famotidine 20 mg Tablet 20 mg PO QHS RF: 0 pantoprazole 40 mg Tablet,Delayed Release (Dr/Ec) 40 mg PO BID RF: 0 buspirone 10 mg Tablet 10 mg PO DAILY RF: 0 ondansetron 8 mg Film 8 mg PO Q12H PRN (Reason: Nausea) RF: 0 Primary Care Provider: Maynor Singh Referrals: Maynor Singh MD [Primary Care Provider] - 2 Days Disposition Disposition: Home, Self Care
[2020-11-06] MEDS: 0.9% Normal Saline 1,000 ML 1000 ML IV (17:40)
[2020-11-06 17:41] LABS: Absolute Lymphocyte Count 1.19 X10^3/uL (0.83-4.51); Absolute Neutrophil Count 4.7 X10^3/uL (2.0-7.7); Basophil# 0.04 X10^3/uL; Basophil% 0.6 % (0-1); Eosinophil# 0.04 X10^3/uL; Eosinophils% 0.6 % (0-5); Hematocrit 39.7 % (37-47); Hemoglobin 12.9 g/dL (12.0-15.0); Lymphocyte # 1.19 X10^3/ul (0.83-4.51); Lymphocyte % 18.2 % (19-41); Mean Corp Hgb Conc 32.5 g/dL (32-36); Mean Corpuscular Hgb 29.9 pg (27.0-32.0); Mean Corpuscular Volume 92.1 fL (81-99); Mean Platelet Vol. 10.3 fl (6.2-12.0); Monocyte# 0.53 X10^3/uL; Monocyte% 8.1 % (0-10); NRBC Flagged by Analyzer 0 % (0-5); Neutrophil # 4.73 X10^3/uL (2.7-7.7); Neutrophil % 72.2 % (47-70); Platelet Count 236 K/mm3 (150-450); RBC Distribution Width CV 12.2 % (11.6-14.6); RBC Distribution Width SD 41.6 fl (35.1-43.9); Red Blood Count 4.31 M/mm3 (4.2-5.4); White Blood Count 6.6 K/mm3 (4.4-11.0)
[2020-11-06 17:52] LABS: ALB/GLOB Ratio 0.9 RATIO (0.9-2.4); AST(SGOT) 15 U/L (15-37); Alanine Aminotransfer ALT/SGPT 14 U/L (13-56); Albumin, Serum 3.8 g/dL (3.2-5.0); Alkaline Phosphatase 104 U/L (45-117); Anion Gap 5 (5-15); BUN 18 mg/dL (7-18); BUN/Creat Ratio 14.8 RATIO (10-20); Calcium,Total 8.6 mg/dL (8.5-10.1); Chloride 101 mmol/L (98-107); Creatinine, Serum 1.22 mg/dL (0.55-1.02); EST Glomerular Filtration Rate 47 mL/min (>60); Est Glom Filt Rate - Afr Amer 57 mL/min (>60); Estimated Creatinine Clearance 40.23 ml/min; Globulin 4.1 g/dL (2.2-4.2); Glucose 252 mg/dL (74-106); Potassium 4.4 mmol/L (3.5-5.1); Protein, Total 7.9 g/dL (6.4-8.2); Sodium Level 134 mmol/L (136-145)
[2020-11-06 18:40] LABS: Bacteria 0 SEEN /hpf (None Seen); Mucous, Urine 0 SEEN /hpf (<or=2+); Red Blood Cells-Urine 0 SEEN /hpf (0-5); Squamous Epithelial Cells - UA 0 SEEN /hpf (5-10); White Blood Cells 0 SEEN /hpf (0-5)
[2020-11-06 18:41] LABS: Color, Urine Yellow (Yellow); Glucose, Dipstick 50 mg/dl (Normal); Ketone-Dipstick Negative (Negative); Leukocyte Esterase-Dipstick Negative /ul (Negative); Nitrite-Dipstick Negative (Negative); Occult Blood-Urine Negative /ul (Negative); Protein-Dipstick Negative (Negative); Urine Bilirubin Dipstick Negative (Negative); Urine Clarity Clear (Clear); Urine Urobilinogen Normal (Normal); Urine pH 6.5 (5.0 - 8.0)
[2020-11-06 19:14] VITALS: BP 155/83; PULSE 85; RESP 17; O2SAT 99
== END 2020-11-06 19:56 | disposition home or self-care (01) ==
PROVIDERS: Emergency Provider Emergency Medicine; PCP Family Medicine
DX: G40.A09 Absence epileptic syndrome, not intractable, without status epilepticus (principal); E86.0 Dehydration; E11.9 Type 2 diabetes mellitus without complications; Z79.899 Other long term (current) drug therapy; Z79.84 Long term (current) use of oral hypoglycemic drugs
CPT/HCPCS: 80053; 81001; 85025; 96360; 99285; J7030; A4216

== ENCOUNTER 2020-12-28 16:43 | Emergency (ER) | payer MEDICARE, MEDICAID, SELFPAY ==
[2020-12-28 16:44] VITALS: BP 159/76; PULSE 81; RESP 18; TEMP 36.8; O2SAT 100; BMI 26.4
[2020-12-28] MEDS: Lidocaine 1% /Epi 1:100 (20ml) 20 ML Vial INFILT (19:14)
--- NOTE | 2020-12-28 19:17 | EDS_ITS ---
HPI History of Present Illness Chief Complaint: Laceration Informant: patient Onset/Context/Timing Onset: Today Mechanism/Context: Incised Quality of Pain: Throbbing Location: Occipital scalp Worsened by: Nothing Relieved by: Nothing Associated Symptoms Associated Symptoms: Negative for Parasthesias, Inability to ambulate and Loss of consciousness Narrative Narrative: Patient presents with scalp laceration that occurred today. Patient states that something fell off of a shelf and hit her on the back of her head. Patient states there was a lot of bleeding initially. Patient states her family looked at it and noticed a hole in the back of her head. Patient is unsure of her last tetanus. Patient denies any loss of consciousness. Patient admits to some mild weakness. Patient describes her pain as throbbing. [facility] Medical History (Updated 12/28/20 @ 19:[address] Leif Daniel, ) Hall esophagus Diabetes Diabetes mellitus H/O absence seizures History of hiatal hernia Hyperlipidemia IBS (irritable bowel syndrome) Lumbar radiculopathy, chronic Nausea & vomiting Post-menopausal bleeding SBO (small bowel obstruction) Seizure disorder Smoking greater than 40 pack years Tinea Unresolved grief Urinary incontinence Weight loss Home Medications Oxcarbazepine 150 mg PO BID 07/25/19 [History Last Taken 07/25/19] Topiramate 100 mg PO DAILY 07/25/19 [History Last Taken 07/25/19] albuterol sulfate 2 puff INHALATION BID PRN PRN 07/25/19 [History Last Taken 07/24/19] diphenhydramine HCl 25 mg PO BID 07/25/19 [History Last Taken 07/25/19] doxepin 50 mg PO QHS 07/25/19 [History Last Taken 07/24/19] metformin 500 mg PO DAILY 07/25/19 [History Last Taken 07/25/19] buspirone 20 mg PO PRN PRN 04/09/20 [History Last Taken Unknown] colestipol 1 gm PO BIDCM 04/09/20 [History Last Taken Unknown] pantoprazole 40 mg PO DAILY 04/09/20 [History Last Taken Unknown] simvastatin 40 mg PO DAILY 04/09/20 [History Last Taken Unknown] topiramate 200 mg PO QHS 04/09/20 [History Last Taken Unknown] fluticasone propionate 50 mcg/actuation nasal spray,suspension 2 spray INTRANASAL DAILY #15.8 ml 05/21/20 [Rx Last Taken Unknown] fluticasone fur. 200 mcg-umeclid 62.5 mcg-vilant 25 mcg inhalat.powder 1 inh INHALATION DAILY #60 each 08/14/20 [Rx Last Taken Unknown] buspirone 10 mg PO DAILY 11/06/20 [History Last Taken Unknown] famotidine 20 mg PO QHS 11/06/20 [History Last Taken Unknown] metformin 500 mg PO DAILY 11/06/20 [History Last Taken Unknown] metronidazole 500 mg PO BID 11/06/20 [History Last Taken Unknown] ondansetron 8 mg PO Q12H PRN 11/06/20 [History Last Taken Unknown] oxcarbazepine 150 mg PO BID 11/06/20 [History Last Taken Unknown] pantoprazole 40 mg PO BID 11/06/20 [History Last Taken Unknown] simvastatin 40 mg PO DAILY 11/06/20 [History Last Taken Unknown] sumatriptan succinate 100 mg PO Q2H PRN 11/06/20 [History Last Taken Unknown] Allergy/AdvReac Type Severity Reaction Status Date / Time corn AdvReac Upset Verified 12/28/20 16:43 Stomach Family History (System 11/19/20 @ 12:36 by Marissa Mustafa) Other No pertinent family history Surgical History History of cholecystectomy Social History Smoking Status: Never smoker Tobacco: How many years used: 12 ROS ROS ED Constitutional Constitutional ED: Denies chills or fever(s) Eyes Eyes: Denies blurry vision or change in vision ENT ENT ED: Reports rhinorrhea; Denies sore throat Cardiovascular Cardiovascular: Denies chest pain or palpitations Respiratory/Chest Respiratory/Chest: Reports cough; Denies dyspnea Gastrointestinal Gastrointestinal: Denies nausea or vomiting Genitourinary Genitourinary ED: Reports urinary frequency; Denies dysuria or hematuria Musculoskeletal Musculoskeletal: Reports back pain; Denies neck pain Integumentary Denies abscess or rash Neurologic Neurologic: Reports headache(s); Denies weakness Allergic/Immunologic Allergic/Immunologic ED: Denies mouth swelling or urticaria EXAM Physical Exam Const Vital Signs: 12/28/20 16:44 Temperature 98.2 F Temperature Source Temporal Pulse Rate 81 Respiratory Rate 18 Blood Pressure 159/76 H Blood Pressure Mean 103 Pulse Ox 100 Oxygen Delivery Method Room Air Positive well nourished HEENT HEENT Narrative: There is a 1.5 cm full-thickness linear laceration over the occipital scalp. There is no active bleeding. There is no bony crepitance or step-off. There are no foreign bodies noted. Eyes PERRL and EOMs intact bilaterally Neck full ROM General: Negative for tenderness Neuro oriented x3, CN's II-XII intact bilaterally, moves all extremities, no focal motor deficits and no sensory deficits noted Sensorium / Orientation: alert Psych mental status grossly normal PROC Procedures Lacerations Scalp: Length: 1.5 cm Depth: Sub Q Shape: Linear Prep: Sterile Conditions and Chlorhexadine Laceration repair: Lidocaine with epi and Local Number of Sutures/[place]: 2 Suture Information: - ([place]) MDM MDM MDM Narrative Medical decision making narrative: The wound was cleaned with chlorhexidine. The wound was anesthetized 1% lidocaine with epinephrine. The wound was closed with 2 simple claudio. Patient tolerated the procedure well. Patient was instructed to keep the wound clean and dry. Patient was instructed to follow-up with her primary care physician in 5 to 7 days for wound recheck and staple removal. Patient understood and was agreeable with the plan. All questions were answered. Discharge Plan Triage Chief Complaint: Laceration Other Complaint: Head Injury ED Provider: Leif Daniel Dx/Rx/DC Orders Clinical Impression: Laceration of occipital region of scalp Instructions: ED Laceration Scalp Stitches or [place] Prescriptions: No Action fluticasone propionate 50 mcg/actuation spray,suspension 2 spray INTRANASAL DAILY Qty: 15.8 RF: 0 Trelegy Ellipta 200-62.5-25 mcg blister with device 1 inh INHALATION DAILY Qty: 60 RF: 6 metformin 500 MG tablet 500 mg PO DAILY RF: 0 doxepin 50 MG capsule 50 mg PO QHS RF: 0 diphenhydramine HCl 25 MG tablet 25 mg PO BID RF: 0 albuterol sulfate 18 GM HFA aerosol inhaler 2 puff INHALATION BID PRN PRN (Reason: Sob &/Or Wheezing) RF: 0 Oxcarbazepine 150 MG tablet 150 mg PO BID RF: 0 Topiramate 100 MG tablet 100 mg PO DAILY RF: 0 simvastatin 40 MG tablet 40 mg PO DAILY RF: 0 pantoprazole 40 MG tablet 40 mg PO DAILY RF: 0 buspirone 10 MG tablet 20 mg PO PRN PRN (Reason: Seizures) RF: 0 topiramate 200 MG tablet 200 mg PO QHS RF: 0 colestipol 1 GM tablet 1 gm PO BIDCM RF: 0 metformin 500 mg Tablet 500 mg PO DAILY RF: 0 oxcarbazepine 150 mg Tablet 150 mg PO BID RF: 0 sumatriptan succinate 100 mg Tablet 100 mg PO Q2H PRN (Reason: Headache) RF: 0 metronidazole 500 mg Tablet 500 mg PO BID RF: 0 simvastatin 40 mg Tablet 40 mg PO DAILY RF: 0 famotidine 20 mg Tablet 20 mg PO QHS RF: 0 pantoprazole 40 mg Tablet,Delayed Release (Dr/Ec) 40 mg PO BID RF: 0 buspirone 10 mg Tablet 10 mg PO DAILY RF: 0 ondansetron 8 mg Film 8 mg PO Q12H PRN (Reason: Nausea) RF: 0 Primary Care Provider: Maynor Singh Referrals: Maynor Singh MD [Primary Care Provider] - 5 Days for suture removal Disposition Disposition: Home, Self Care
== END 2020-12-28 19:42 | disposition home or self-care (01) ==
PROVIDERS: Emergency Provider Emergency Medicine; PCP Family Medicine
DX: S01.01XA Laceration without foreign body of scalp, initial encounter (principal); X58.XXXA Exposure to other specified factors, initial encounter
CPT/HCPCS: 12001; 99283

== ENCOUNTER 2021-09-14 14:42 | Emergency (ER) | payer MEDICARE, MEDICAID, SELFPAY ==
[2021-09-14 14:43] VITALS: BP 142/73; PULSE 73; RESP 18; TEMP 36.7; O2SAT 100; BMI 29.8
--- NOTE | 2021-09-14 15:10 | EKG12_ITS ---
Test Reason : SEIZURE Blood Pressure : / mmHG Vent. Rate : 075 BPM Atrial Rate : 075 BPM P-R Int : 180 ms QRS Dur : 076 ms QT Int : 408 ms P-R-T Axes : 067 055 056 degrees QTc Int : 455 ms Normal sinus rhythm Normal ECG Confirmed by LOY DAVISON, ILANA ([id number]), photograph editor RG CATES ([id number]) on 09/15/2021 1:04:48 PM Referred By: Confirmed By:ILANA GRANADO MD
--- NOTE | 2021-09-14 15:10 | RAD_ITS ---
STUDY: X-RAY CHEST REASON FOR EXAM: Female, 66 years old. chest pain TECHNIQUE: Single AP portable view of the chest. COMPARISON: 07/25/2019 FINDINGS: The lungs are clear and expanded. There is no demonstrated pleural abnormality. Normal size heart. Normal mediastinum and ramiro. Normal visualized pulmonary arteries. Normal visualized aortic arch and descending thoracic aorta. Normal visualized thoracic spine. Normal visualized ribs, clavicles, and shoulders. There is no demonstrated abnormality of the visualized soft tissue structures of the upper abdomen. RAD/Chest 1 View (Portable) IMPRESSION: Normal x-ray examination of the chest. Electronically Signed: Nicholas Moncada MD at 16:00 EDT ,
--- NOTE | 2021-09-14 15:10 | CT_ITS ---
STUDY: CT BRAIN WITHOUT CONTRAST REASON FOR EXAM: Female, 66 years old. Pain RADIATION DOSAGE (If Supplied By Facility): CTDIvol = ( 44.99 ) mGy, DLP = ( 779.24 ) mGycm TECHNIQUE: Transaxial CT imaging of the brain was performed without administration of intravenous contrast material. Individualized dose optimization techniques were used for this CT. COMPARISON: No relevant priors. FINDINGS: Normal soft tissue structures. Normal calvarium. Normal size ventricles and extra-axial spaces for the patient''s age. Normal white matter tracts of the cerebral hemispheres. Normal basal ganglia and thalami. Normal brainstem. Normal cerebellum. There is no intracranial hemorrhage. There are no findings of an acute ischemic infarction. Normal visualized paranasal sinuses. CT/Brain/Head without Contrast IMPRESSION: Normal unenhanced CT scan of the brain. Electronically Signed: Nicholas Moncada MD at 16:03 EDT ,
--- NOTE | 2021-09-14 15:11 | EDS_ITS ---
HPI History of Present Illness Chief Complaint: Seizure Narrative Narrative: 66-year-old female with distant history of grand mal seizure as a child, and current history of absence seizure's presenting with absence seizure which occurred prior to arrival. Her [id number] states it lasted about 10 minutes. She was postictal. On EMS arrival she was awake and talking. Apparently she had another absence seizure in route. On arrival to the ER she was awake and talking to nursing staff. Patient states he has not had a seizure in at least a month and a half. Patient states that she is on oxcarbazepine and topiramate. No changes in her medications. She does not have a memory of her seizure earlier today. She does not think she had a headache prior to the onset. She complains of a mild headache now. She has no visual complaints. No nausea or vomiting. Patient states that her left shoulder hurts a little bit. Her [id number] reports that she did not fall or injure herself. She has been otherwise healthy prior to this morning. She states she has been sleeping well. She had a hot coffee on Wednesday but has not been drinking today. [facility] Medical History Hall esophagus Diabetes Diabetes mellitus H/O absence seizures History of hiatal hernia Hyperlipidemia IBS (irritable bowel syndrome) Lumbar radiculopathy, chronic Nausea & vomiting Post-menopausal bleeding SBO (small bowel obstruction) Seizure disorder Smoking greater than 40 pack years Tinea Unresolved grief Urinary incontinence Weight loss Home Medications Topiramate 100 mg PO DAILY 07/25/19 [History Last Taken 07/25/19] albuterol sulfate 2 puff INHALATION BID PRN PRN 07/25/19 [History Last Taken 07/24/19] metformin 500 mg PO DAILY 07/25/19 [History Last Taken 07/25/19] topiramate 200 mg PO QHS 04/09/20 [History Last Taken Unknown] buspirone 10 mg PO BID 11/06/20 [History Last Taken Unknown] oxcarbazepine 150 mg PO BID 11/06/20 [History Last Taken Unknown] pantoprazole 40 mg PO BID 11/06/20 [History Last Taken Unknown] simvastatin 40 mg PO DAILY 11/06/20 [History Last Taken Unknown] sumatriptan succinate 100 mg PO Q2H PRN MDD 2 tabs 11/06/20 [History Last Taken Unknown] fluticasone propionate 2 spray INTRANASAL DAILY PRN 09/14/21 [History Last Taken Unknown] loperamide 2 mg PO DAILY 09/14/21 [History Last Taken Unknown] ondansetron HCl 4 mg PO Q8H PRN PRN 09/14/21 [History Last Taken Unknown] Allergy/AdvReac Type Severity Reaction Status Date / Time corn AdvReac Upset Verified 09/14/21 14:47 Stomach Family History Other No pertinent family history Surgical History History of cholecystectomy Social History Smoking Status: Never smoker Tobacco: How many years used: 12 ROS ROS ED Constitutional Constitutional ED: Denies chills, fever(s) or sweats Eyes Eyes: Denies blurry vision or diplopia ENT ENT ED: Denies rhinorrhea or sore throat Cardiovascular Cardiovascular: Denies chest pain or palpitations Respiratory/Chest Respiratory/Chest: Denies cough or dyspnea Gastrointestinal Gastrointestinal: Denies abdominal pain, nausea or vomiting Genitourinary Genitourinary ED: Denies dysuria or hematuria Musculoskeletal Musculoskeletal: Reports other Details: Left shoulder ; Denies back pain, myalgias or neck pain Neurologic Neurologic: Reports headache(s); Denies paresthesias or weakness Psychiatric Psychiatric: Denies anxiety or depression EXAM Physical Exam Const Vital Signs: 09/14/21 14:43 09/14/21 15:12 09/14/21 16:00 Temperature 98.0 F Temperature Source Temporal Pulse Rate 73 74 Respiratory Rate 18 14 Blood Pressure 142/73 H 139/75 H Blood Pressure Mean 96 96 Pulse Ox 100 100 Oxygen Delivery Method Room Air Room Air Room Air Positive well nourished General Appearance ED: NAD; Negative for pallor HEENT Reports moist mucous membranes Negative for trauma Eyes PERRL and EOMs intact bilaterally General Eye ED: Negative for pale conjunctiva or scleral icterus Neck No supple Chest Wall inspection of chest normal and palpation of chest normal Resp normal respiratory effort and clear to auscultation bilaterally Cardio regular rate and regular rhythm Back/Spine no CVA tenderness Cervical Spine: Negative for cervical spine tenderness Thoracic Spine / Upper Back: Negative for thoracic spinal tenderness or paraspinal muscle tenderness Extremity normal to inspection Neuro oriented x3, CN's II-XII intact bilaterally and no sensory deficits noted Sensorium / Orientation: alert Motor Exam: strength 5/5 throughout Psych mental status grossly normal Skin no rashes or lesions noted and no wounds General Skin Exam: Negative for jaundice or pallor MDM MDM MDM Narrative Medical decision making narrative: On my evaluation the patient is awake and talking. It was reported prior to my walking into the room that she was having a possible absence seizure. This was about 4 minutes prior to me entering the room. She was not medicated. Nursing staff reports that her arms were not rigid. They were attempting to hold her hand over her face and when dropped she never hit her face and only the bed. The patient's examination is completely normal. No focal neurologic deficits or lateralizing signs or symptoms. I obtained an EKG because of the left shoulder pain and on my interpretation this is a normal sinus rhythm with a ventricular rate of 75 bpm without sign of ischemic change. Chest x-ray my interpretation shows no acute cardiopulmonary process and the radiologist agree. CT of the brain is negative as interpreted by the radiologist and reviewed myself. CBC and BMP are unremarkable. Magnesium within normal limits. High-sensitivity troponin is 3. EtOH negative. Drug abuse screen negative. Lactic acid 1.0. I did order Compazine and Benadryl for her headache however she declined this. She did not require any Ativan while she was here. She has been alert and awake the whole time she has been in the emergency room. Given her negative work-up I feel she can be discharged home. Patient and family counseled to follow-up with neurology. Return precautions discussed. Impression: 1. Absence seizure Lab Data Labs: Laboratory Results - last 24 hr 09/14/21 09/14/21 09/14/21 15:00 15:00 15:00 WBC 6.1 RBC 4.12 L Hgb 13.2 Hct 38.8 MCV 94.2 MCH 32.0 MCHC 34.0 RDW Std Deviation 41.7 RDW Coeff of Debra 11.9 Plt Count 187 MPV 10.3 Immature Gran % (Auto) 0.500 Neut % (Auto) 57.0 Lymph % (Auto) 25.7 Iron % (Auto) 12.0 H Eos % (Auto) 4.1 Baso % (Auto) 0.7 Absolute Neuts (auto) 3.5 Absolute Lymphs (auto) 1.56 Nucleated RBC % 0 Sodium 136 Potassium 3.8 Chloride 104 Carbon Dioxide 24.0 Anion Gap 8 BUN 21 H Creatinine 0.97 Estim Creat Clear Calc 49.26 Est GFR (MDRD) Af Amer 74 Est GFR (MDRD) Non-Af 61 BUN/Creatinine Ratio 21.6 H Glucose 150 H Lactic Acid Calcium 7.9 L Magnesium 1.8 Troponin I High Sens 3 Urine Color Urine Clarity Urine pH Ur Specific [place] Urine Protein Urine Glucose (UA) Urine Ketones Urine Occult Blood Urine Nitrite Urine Bilirubin Urine Urobilinogen Ur Leukocyte Esterase Urine RBC Urine WBC Ur Squamous Epith Cells Urine Bacteria Urine Mucus Urine Opiates Screen Urine Methadone Screen Ur Barbiturates Screen Ur Phencyclidine Scrn Ur Amphetamines Screen MDMA (Ecstasy) Screen U Benzodiazepines Scrn Urine Cocaine Screen U Cannabinoids Screen Ur Drug Screen Comment Ethyl Alcohol < 3.0 09/14/21 09/14/21 09/14/21 15:15 15:50 15:50 WBC RBC Hgb Hct MCV MCH MCHC RDW Std Deviation RDW Coeff of Debra Plt Count MPV Immature Gran % (Auto) Neut % (Auto) Lymph % (Auto) Iron % (Auto) Eos % (Auto) Baso % (Auto) Absolute Neuts (auto) Absolute Lymphs (auto) Nucleated RBC % Sodium Potassium Chloride Carbon Dioxide Anion Gap BUN Creatinine Estim Creat Clear Calc Est GFR (MDRD) Af Amer Est GFR (MDRD) Non-Af BUN/Creatinine Ratio Glucose Lactic Acid 1.0 Calcium Magnesium Troponin I High Sens Urine Color Yellow Urine Clarity Clear Urine pH 6.5 Ur Specific [place] 1.010 Urine Protein Negative Urine Glucose (UA) Normal Urine Ketones Negative Urine Occult Blood Negative Urine Nitrite Negative Urine Bilirubin Negative Urine Urobilinogen Normal Ur Leukocyte Esterase Negative Urine RBC 0 SEEN Urine WBC 0 SEEN Ur Squamous Epith Cells 0 SEEN Urine Bacteria 0 SEEN Urine Mucus 0 SEEN Urine Opiates Screen NEGATIVE Urine Methadone Screen NEGATIVE Ur Barbiturates Screen NEGATIVE Ur Phencyclidine Scrn NEGATIVE Ur Amphetamines Screen NEGATIVE MDMA (Ecstasy) Screen NEGATIVE U Benzodiazepines Scrn NEGATIVE Urine Cocaine Screen NEGATIVE U Cannabinoids Screen NEGATIVE Ur Drug Screen Comment Ethyl Alcohol Radiography Diagnostic Testing: Clinical Impression(s) from Imaging Studies Brain CT 09/14/21 15:10 IMPRESSION: Normal unenhanced CT scan of the brain. Electronically Signed: Nicholas Moncada MD at 16:03 EDT , Chest X-Ray 09/14/21 15:10 IMPRESSION: Normal x-ray examination of the chest. Electronically Signed: Nicholas Moncada MD at 16:00 EDT , Discharge Plan Triage Chief Complaint: Seizure ED Provider: Jamie Michaud Dx/Rx/DC Orders Prescriptions: No Action metformin 500 MG tablet 500 mg PO DAILY RF: 0 albuterol sulfate 18 GM HFA aerosol inhaler 2 puff INHALATION BID PRN PRN (Reason: Sob &/Or Wheezing) RF: 0 Topiramate 100 MG tablet 100 mg PO DAILY RF: 0 topiramate 200 MG tablet 200 mg PO QHS RF: 0 oxcarbazepine 150 mg Tablet 150 mg PO BID RF: 0 sumatriptan succinate 100 mg Tablet 100 mg PO Q2H MDD 2 tabs PRN (Reason: Migraine Headache) RF: 0 simvastatin 40 mg Tablet 40 mg PO DAILY RF: 0 pantoprazole 40 mg Tablet,Delayed Release (Dr/Ec) 40 mg PO BID RF: 0 buspirone 10 mg Tablet 10 mg PO BID RF: 0 fluticasone propionate 50 mcg/actuation spray,suspension 2 spray INTRANASAL DAILY PRN (Reason: allergies) RF: 0 ondansetron HCl 4 mg tablet 4 mg PO Q8H PRN PRN (Reason: Nausea) RF: 0 loperamide 2 mg capsule 2 mg PO DAILY RF: 0 Primary Care Provider: Maynor Singh
--- NOTE | 2021-09-14 15:14 | ED.RN ---
Upon arrival to ER pt was able to state name, knew month & place. After obtaining some history from patient, she started having mild tremors in b/l hands. Pt stated the room feels dizzy. Family states this is what pt looks like when she is going to have a seizure. Pt still responding to verbal commands at this time. Continued w/b/l hand tremors, breathing became irregular and pt's eyes rolled back. Pt had upper body restlessness and abnormal breathing. Eyes noted to be up and to the left during episode. This episode lasted approx 2 and 1/2 minutes.
[2021-09-14 15:20] LABS: Absolute Lymphocyte Count 1.56 X10^3/uL (0.83-4.51); Absolute Neutrophil Count 3.5 X10^3/uL (2.0-7.7); Basophil# 0.04 X10^3/uL; Basophil% 0.7 % (0-1); Eosinophil# 0.25 X10^3/uL; Eosinophils% 4.1 % (0-5); Hematocrit 38.8 % (37-47); Hemoglobin 13.2 g/dL (12.0-15.0); Lymphocyte # 1.56 X10^3/ul (0.83-4.51); Lymphocyte % 25.7 % (19-41); Mean Corpuscular Volume 94.2 fL (81-99); Mean Platelet Vol. 10.3 fl (6.2-12.0); Monocyte# 0.73 X10^3/uL; NRBC Flagged by Analyzer 0 % (0-5); Neutrophil # 3.47 X10^3/uL (2.7-7.7); Platelet Count 187 K/mm3 (150-450); RBC Distribution Width CV 11.9 % (11.6-14.6); RBC Distribution Width SD 41.7 fl (35.1-43.9); Red Blood Count 4.12 M/mm3 (4.2-5.4); White Blood Count 6.1 K/mm3 (4.4-11.0)
[2021-09-14 15:38] LABS: Alcohol, Blood (Medical)-Serum < 3.0 mg/dL
[2021-09-14 15:44] LABS: Anion Gap 8 (5-15); BUN 21 mg/dL (7-18); BUN/Creat Ratio 21.6 RATIO (10-20); Calcium,Total 7.9 mg/dL (8.5-10.1); Chloride 104 mmol/L (98-107); Creatinine, Serum 0.97 mg/dL (0.55-1.02); EST Glomerular Filtration Rate 61 mL/min (>60); Est Glom Filt Rate - Afr Amer 74 mL/min (>60); Estimated Creatinine Clearance 49.26 ml/min; Glucose 150 mg/dL (74-106); Magnesium 1.8 mg/dL (1.6-2.6); Potassium 3.8 mmol/L (3.5-5.1); Sodium Level 136 mmol/L (136-145); Troponin-I HS (w/2H Reflex) 3 pg/mL (3.0-54.0)
[2021-09-14 16:00] VITALS: BP 139/75; PULSE 74; RESP 14; O2SAT 100
[2021-09-14 16:00] LABS: Bacteria 0 SEEN /hpf (None Seen); Mucous, Urine 0 SEEN /hpf (<or=2+); Red Blood Cells-Urine 0 SEEN /hpf (0-5); Squamous Epithelial Cells - UA 0 SEEN /hpf (5-10); White Blood Cells 0 SEEN /hpf (0-5)
[2021-09-14] MEDS: 0.9% Normal Saline 1,000 ML 999 ML IV (16:05)
[2021-09-14 16:08] LABS: Color, Urine Yellow (Yellow); Glucose, Dipstick Normal (Normal); Ketone-Dipstick Negative (Negative); Leukocyte Esterase-Dipstick Negative /ul (Negative); Nitrite-Dipstick Negative (Negative); Occult Blood-Urine Negative /ul (Negative); Protein-Dipstick Negative (Negative); Urine Bilirubin Dipstick Negative (Negative); Urine Clarity Clear (Clear); Urine Urobilinogen Normal (Normal); Urine pH 6.5 (5.0 - 8.0)
[2021-09-14 16:13] LABS: Amphetamine Urine VISTA NEGATIVE (<1000 ng/mL); Barbiturate Urine VISTA NEGATIVE (< 200 ng/mL); Benzodiazepine Urine VISTA NEGATIVE (< 200 ng/mL); Cocaine Urine VISTA NEGATIVE (< 300 ng/mL); Ecstacy Urine VISTA NEGATIVE (< 500 ng/mL); Methadone Urine VISTA NEGATIVE (< 300 ng/mL); PCP Urine VISTA NEGATIVE (< 25 ng/mL); THC Urine VISTA NEGATIVE (< 50 ng/mL); Vista UDS pH Range 6
[2021-09-14 17:16] LABS: Reflex Troponin-HS? (from REC) Y
== END 2021-09-14 17:18 | disposition home or self-care (01) ==
PROVIDERS: Emergency Provider Student in an Organized Health Care Education/Training Program; PCP Family Medicine; Visit Provider Student in an Organized Health Care Education/Training Program
DX: G40.802 Other epilepsy, not intractable, without status epilepticus (principal); E11.9 Type 2 diabetes mellitus without complications; R51.9 Headache, unspecified; M25.512 Pain in left shoulder; E78.5 Hyperlipidemia, unspecified; R32 Unspecified urinary incontinence; Z79.899 Other long term (current) drug therapy; K58.9 Irritable bowel syndrome, unspecified; Z79.84 Long term (current) use of oral hypoglycemic drugs
CPT/HCPCS: 70450; 71045; 80048; 80307; 81001; 82077; 83605; 83735; 84484; 85025; 93005; 96360; 99285; J7030; A4216

== ENCOUNTER 2022-01-06 23:09 | Emergency (ER) | payer MEDICARE, MEDICAID, SELFPAY ==
[2022-01-06 23:10] VITALS: BP 109/67; PULSE 65; RESP 16; TEMP 35.8; O2SAT 97; BMI 29.0
[2022-01-06 23:31] VITALS: BP 110/68; PULSE 69; RESP 19; O2SAT 99
--- NOTE | 2022-01-06 23:42 | ED.RN ---
[facility] in [facility] [place] - can be called for ride home at [phone]
--- NOTE | 2022-01-07 00:05 | RAD_ITS ---
STUDY: X-RAY - PELVIS REASON FOR EXAM: Female, 66 years old. fall TECHNIQUE: One view of the pelvis was obtained. COMPARISON: None. FINDINGS: There is a non-specific bowel gas pattern. Normal visualized soft tissue structures. There is narrowing with cortical sclerosis and osteophyte formation of the sacroiliac joint consistent with degenerative osteoarthritic changes. Normal visualized bilateral superior and inferior pubic rami. Normal pubic symphysis. Normal ischial tuberosities. There are osteoarthritic changes of the right femoral head with marginal osteophyte formation. Normal right acetabulum. Normal right hip joint. There are osteoarthritic changes of the left femoral head with marginal osteophyte formation. Normal left acetabulum. Normal left hip joint. 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 Electronically Signed: Jon Andino MD at 1:08 EDT ,
--- NOTE | 2022-01-07 00:05 | CT_ITS ---
STUDY: CT CERVICAL SPINE WITHOUT CONTRAST REASON FOR EXAM: Female, 66 years old. injury RADIATION DOSAGE (If Supplied By Facility): CTDIvol = ( 17.83 ) mGy, DLP = ( 334.99 ) mGycm TECHNIQUE: High resolution transaxial imaging was performed without contrast material. Sagittal and coronal images were reconstructed. Individualized dose optimization techniques were used for this CT. COMPARISON: None FINDINGS: Normal craniovertebral junction. Normal anterior atlantoaxial articulation. Normal odontoid process. There is straightening of the normal cervical lordosis. Normal vertebral bodies and posterior osseous elements. C2-3: Normal endplates. Normal disc height and morphology. Normal central canal and intervertebral neuroforamina. C3-4, C4-5, C5-6, C6-7: Endplate spondylosis. Central and paracentral disc bulge. Degenerative changes of the bilateral facet joints and uncovertebral joints. Lajv-zw-bjdzrija narrowing of the central canal and the bilateral intervertebral neural foramina. C7-T1: Normal endplates. Normal disc height and morphology. Normal central canal and intervertebral neuroforamina. Normal visualized soft tissue structures. CT/Spine Cervical without Contras IMPRESSION: Multilevel degenerative changes, as described above. Electronically Signed: Jon Andino MD at 1:20 EDT ,
--- NOTE | 2022-01-07 00:05 | CT_ITS ---
STUDY: CT BRAIN WITHOUT CONTRAST REASON FOR EXAM: Female, 66 years old. head injury RADIATION DOSAGE (If Supplied By Facility): CTDIvol = ( 44.99 ) mGy, DLP = ( 796.11 ) mGycm TECHNIQUE: Transaxial CT imaging of the brain was performed without administration of intravenous contrast material. Individualized dose optimization techniques were used for this CT. COMPARISON: No relevant priors. FINDINGS: Left frontal scalp hematoma. Normal calvarium. Normal size ventricles and extra-axial spaces for the patient''s age. Normal white matter tracts of the cerebral hemispheres. Normal basal ganglia and thalami. Normal brainstem. Normal cerebellum. There is no intracranial hemorrhage. There are no findings of an acute ischemic infarction. Normal visualized paranasal sinuses. CT/Brain/Head without Contrast IMPRESSION: No acute intracranial abnormality. Electronically Signed: Jon Andino MD at 1:18 EDT ,
[2022-01-07 00:47] LABS: Absolute Lymphocyte Count 2.43 X10^3/uL (0.83-4.51); Absolute Neutrophil Count 3.5 X10^3/uL (2.0-7.7); Basophil# 0.05 X10^3/uL; Basophil% 0.7 % (0-1); Eosinophil# 0.33 X10^3/uL; Eosinophils% 4.7 % (0-5); Hemoglobin 13.2 g/dL (12.0-15.0); Lymphocyte # 2.43 X10^3/ul (0.83-4.51); Lymphocyte % 34.7 % (19-41); Mean Corpuscular Hgb 31.1 pg (27.0-32.0); Mean Corpuscular Volume 94.3 fL (81-99); Mean Platelet Vol. 10.8 fl (6.2-12.0); Monocyte# 0.68 X10^3/uL; Monocyte% 9.7 % (0-10); NRBC Flagged by Analyzer 0 % (0-5); Neutrophil # 3.49 X10^3/uL (2.7-7.7); Neutrophil % 49.8 % (47-70); Platelet Count 201 K/mm3 (150-450); RBC Distribution Width CV 12.3 % (11.6-14.6); RBC Distribution Width SD 42.5 fl (35.1-43.9); Red Blood Count 4.24 M/mm3 (4.2-5.4)
[2022-01-07 01:17] LABS: Anion Gap 10 (5-15); BUN 17 mg/dL (7-18); BUN/Creat Ratio 12.8 RATIO (10-20); Calcium,Total 8.1 mg/dL (8.5-10.1); Chloride 108 mmol/L (98-107); Creatinine, Serum 1.33 mg/dL (0.55-1.02); EST Glomerular Filtration Rate 42 mL/min (>60); Est Glom Filt Rate - Afr Amer 51 mL/min (>60); Estimated Creatinine Clearance 35.93 ml/min; Glucose 188 mg/dL (74-106); Potassium 3.3 mmol/L (3.5-5.1); Sodium Level 139 mmol/L (136-145); Thyroid Stim Hormone (TSH) 1.03 uIU/mL (0.358-3.74)
[2022-01-07 01:48] VITALS: BP 108/70; PULSE 66; RESP 16; O2SAT 97
[2022-01-07 01:52] LABS: Amphetamine Urine VISTA NEGATIVE (<1000 ng/mL); Barbiturate Urine VISTA NEGATIVE (< 200 ng/mL); Benzodiazepine Urine VISTA NEGATIVE (< 200 ng/mL); Cocaine Urine VISTA NEGATIVE (< 300 ng/mL); Ecstacy Urine VISTA NEGATIVE (< 500 ng/mL); Methadone Urine VISTA NEGATIVE (< 300 ng/mL); PCP Urine VISTA NEGATIVE (< 25 ng/mL); THC Urine VISTA NEGATIVE (< 50 ng/mL); Vista UDS pH Range 5
[2022-01-07 03:00] VITALS: BP 132/77; PULSE 78; RESP 16; O2SAT 98
--- NOTE | 2022-01-07 03:37 | EDS_ITS ---
HPI History of Present Illness Chief Complaint: Fall Narrative Narrative: Patient is a 66-year-old female with past medical history of asthma/COPD diabetes hyperlipidemia and seizure disorder. Reportedly she was drinking this evening with family when she fell and struck her head. Secondary to the head trauma and alcohol use family called EMS and she was brought in by evaluation. Patient cannot offer further history at this time based on her alcohol use. [facility] Medical History (Updated 01/07/22 @ 03:[address] Austin Howard, DO) Hall esophagus Diabetes Diabetes mellitus H/O absence seizures History of hiatal hernia Hyperlipidemia IBS (irritable bowel syndrome) Lumbar radiculopathy, chronic Nausea & vomiting Post-menopausal bleeding SBO (small bowel obstruction) Seizure disorder Smoking greater than 40 pack years Tinea Unresolved grief Urinary incontinence Weight loss Medical History unable to obtain Home Medications Topiramate 100 mg PO DAILY SEIZURES 07/25/19 [History Last Taken 07/25/19] albuterol sulfate 90 mcg/actuation aerosol inhaler 2 puff inhalation BID PRN PRN Sob &/Or Wheezing 07/25/19 [History Last Taken 07/24/19] metformin 500 mg tablet 500 mg PO DAILY DM 07/25/19 [History Last Taken 07/25/19] topiramate 200 mg tablet 200 mg PO QHS 04/09/20 [History Last Taken Unknown] buspirone 10 mg tablet 10 mg PO BID 11/06/20 [History Last Taken Unknown] oxcarbazepine 150 mg tablet 150 mg PO BID 11/06/20 [History Last Taken Unknown] pantoprazole 40 mg tablet,delayed release 40 mg PO BID 11/06/20 [History Last Taken Unknown] simvastatin 40 mg tablet 40 mg PO QHS 11/06/20 [History Last Taken Unknown] sumatriptan succinate 100 mg tablet 100 mg PO Q2H PRN Migraine Headache 11/06/20 [History Last Taken Unknown] fluticasone propionate 50 mcg/actuation nasal spray,suspension 2 spray int ranasal DAILY PRN allergies 09/14/21 [History Last Taken Unknown] loperamide 2 mg capsule 2 mg PO DAILY 09/14/21 [History Last Taken Unknown] ondansetron HCl 4 mg tablet 4 mg PO Q8H PRN PRN Nausea 09/14/21 [History Last Taken Unknown] Allergy/AdvReac Type Severity Reaction Status Date / Time corn AdvReac Upset Verified 09/14/21 14:47 Stomach Family History Other No pertinent family history Surgical History History of cholecystectomy Social History Smoking Status: Never smoker Tobacco: How many years used: 12 ROS ROS ED ROS Narrative Review of systems cannot be obtained based on the patient's intoxicated state Review of Systems ROS Unobtainable: due to mental status EXAM Physical Exam Const Vital Signs: 01/06/22 23:10 01/06/22 23:31 01/06/22 23:31 Temperature 96.5 F L Temperature Source Temporal Pulse Rate 65 69 Respiratory Rate 16 19 H Blood Pressure 109/67 110/68 Blood Pressure Mean 81 82 Pulse Ox 97 99 Oxygen Delivery Method Room Air Room Air Room Air 01/07/22 01:48 01/07/22 03:00 Temperature Temperature Source Pulse Rate 66 78 Respiratory Rate 16 16 Blood Pressure 108/70 132/77 H Blood Pressure Mean 82 95 Pulse Ox 97 98 Oxygen Delivery Method Room Air Room Air Positive well nourished and well developed General Appearance ED: well developed HEENT Reports moist mucous membranes HEENT Narrative: Patient has a 3 x 2 hematoma to the left frontal portion of the scalp consistent with reported head injury. No signs of depressed or basilar skull fracture. No tongue or cheek biting to suggest seizure activity Eyes EOMs intact bilaterally Eyes Narrative: Pupils are dilated and sluggish to respond with mild scleral injection consistent with alcohol intoxication Neck supple Neck Narrative: No bony deformity or step-off of the cervical spine no midline pain on palpation Chest Wall palpation of chest normal Chest Narrative: No bony deformity or crepitance noted Resp normal respiratory effort Resp Narrative: Breath sounds are diminished throughout with faint expiratory wheeze in the bases without signs of respiratory distress Cardio regular rate and regular rhythm GI normal to inspection, nondistended, normoactive bowel sounds, non-tender and non-distended GI Narrative: No voluntary guarding or rigidity no pulsatile mass Auscultation: normoactive bowel sounds Palpation: soft Back/Spine Back/Spine Narrative: No bony deformity or step-off of the thoracic or lumbar spine Extremity normal to inspection Extremity Narrative: Pelvis is stable and there is no shortening or external rotation of either lower extremity. Patient can move all extremities without difficulty Neuro Neuro Narrative: Patient is obtunded with GCS of 13 consistent with alcohol intoxication however there are no signs of acute focal deficit. Psych Psych Narrative: Patient has a flat/depressed affect Skin Skin Narrative: Hematoma to the left frontal portion of the scalp as documented above MDM MDM MDM Narrative Medical decision making narrative: Patient presented to the ER obtunded consistent with her reported alcohol intoxication. Based on her age alcohol use and head injury imaging studies of the head and cervical spine were obtained. These showed no acute traumatic findings. Based on her mental status blood work was obtained as well to ensure there was no other cause for her abrupt change in mental status other than alcohol intoxication. Lab work revealed no acute findings other than an elevated alcohol level of 241 which is consistent with her history and physical exam. Patient was in the ER for multiple hours and as her alcohol level reduced her mental status improved. She was able to ambulate with a steady gait. Therefore at this time as work-up reveals no underlying traumatic findings and blood work only indicates alcohol in the system and she is having improvement of mental status and has a steady/stable gait she can be discharged home with family. Lab Data Attestation: I reviewed the patient's lab results. Labs: Laboratory Results - last 24 hr 01/06/22 01/06/22 01/06/22 23:40 23:40 23:40 WBC 7.0 RBC 4.24 Hgb 13.2 Hct 40.0 MCV 94.3 MCH 31.1 MCHC 33.0 RDW Std Deviation 42.5 RDW Coeff of Debra 12.3 Plt Count 201 MPV 10.8 Immature Gran % (Auto) 0.400 Neut % (Auto) 49.8 Lymph % (Auto) 34.7 [place] % (Auto) 9.7 Eos % (Auto) 4.7 Baso % (Auto) 0.7 Absolute Neuts (auto) 3.5 Absolute Lymphs (auto) 2.43 Nucleated RBC % 0 Sodium 139 Potassium 3.3 L Chloride 108 H Carbon Dioxide 21.0 Anion Gap 10 BUN 17 Creatinine 1.33 H Estim Creat Clear Calc 35.93 Est GFR (MDRD) Af Amer 51 L Est GFR (MDRD) Non-Af 42 L BUN/Creatinine Ratio 12.8 Glucose 188 H Calcium 8.1 L Ammonia TSH 1.03 Urine Opiates Screen Urine Methadone Screen Ur Barbiturates Screen Ur Phencyclidine Scrn Ur Amphetamines Screen MDMA (Ecstasy) Screen U Benzodiazepines Scrn Urine Cocaine Screen U Cannabinoids Screen Ur Drug Screen Comment Ethyl Alcohol 241.0 01/06/22 01/07/22 23:40 01:05 WBC RBC Hgb Hct MCV MCH MCHC RDW Std Deviation RDW Coeff of Debra Plt Count MPV Immature Gran % (Auto) Neut % (Auto) Lymph % (Auto) [place] % (Auto) Eos % (Auto) Baso % (Auto) Absolute Neuts (auto) Absolute Lymphs (auto) Nucleated RBC % Sodium Potassium Chloride Carbon Dioxide Anion Gap BUN Creatinine Estim Creat Clear Calc Est GFR (MDRD) Af Amer Est GFR (MDRD) Non-Af BUN/Creatinine Ratio Glucose Calcium Ammonia 22.0 TSH Urine Opiates Screen NEGATIVE Urine Methadone Screen NEGATIVE Ur Barbiturates Screen NEGATIVE Ur Phencyclidine Scrn NEGATIVE Ur Amphetamines Screen NEGATIVE MDMA (Ecstasy) Screen NEGATIVE U Benzodiazepines Scrn NEGATIVE Urine Cocaine Screen NEGATIVE U Cannabinoids Screen NEGATIVE Ur Drug Screen Comment Ethyl Alcohol Radiography Diagnostic Testing: Clinical Impression(s) from Imaging Studies Brain CT 01/07/22 00:05 IMPRESSION: No acute intracranial abnormality. Electronically Signed: Jon Andino MD at 1:18 EDT Reading Location ID and State: [facility] / [place] , Service support , Cervical Spine CT 01/07/22 00:05 IMPRESSION: Multilevel degenerative changes, as described above. Electronically Signed: Jon Andino MD at 1:20 EDT , Pelvis X-Ray 01/07/22 00:05 IMPRESSION: Mild degenerative arthrosis of the SI joints and hip joints. Electronically Signed: Jon Andino MD at 1:08 EDT , 1 view pelvis x-ray as interpreted by the emergency medicine physician reveals no acute fracture or dislocation Discharge Plan Triage Chief Complaint: Fall ED Provider: Austin Howard Dx/Rx/DC Orders Clinical Impression: Closed head injury, Alcohol intoxication, Hematoma Instructions: ED Alcohol Intoxication, ED Head Injury (Adult), ED Hematoma Prescriptions: No Action metformin 500 MG tablet 500 mg PO DAILY albuterol sulfate 18 GM HFA aerosol inhaler 2 puff INHALATION BID PRN PRN (Reason: Sob &/Or Wheezing) Topiramate 100 MG tablet 100 mg PO DAILY topiramate 200 MG tablet 200 mg PO QHS oxcarbazepine 150 mg Tablet 150 mg PO BID sumatriptan succinate 100 mg Tablet 100 mg PO Q2H MDD 2 tabs PRN (Reason: Migraine Headache) simvastatin 40 mg Tablet 40 mg PO QHS pantoprazole 40 mg Tablet,Delayed Release (Dr/Ec) 40 mg PO BID buspirone 10 mg Tablet 10 mg PO BID fluticasone propionate 50 mcg/actuation spray,suspension 2 spray INTRANASAL DAILY PRN (Reason: allergies) ondansetron HCl 4 mg tablet 4 mg PO Q8H PRN PRN (Reason: Nausea) Label Comments: 2po qday loperamide 2 mg capsule 2 mg PO DAILY Primary Care Provider: Maynor Singh Referrals: Maynor Singh MD [Primary Care Provider] - Disposition Disposition: Home, Self Care
[2022-01-07 03:40] VITALS: BP 132/77; PULSE 78; RESP 16; O2SAT 98
[2022-01-15 16:37] LABS: Trileptal-Oxcarbazepine 6 ug/mL (10-35)
== END 2022-01-07 03:51 | disposition home or self-care (01) ==
PROVIDERS: Emergency Provider Emergency Medicine; PCP Family Medicine; Visit Provider Emergency Medicine
DX: S09.90XA Unspecified injury of head, initial encounter (principal); F10.129 Alcohol abuse with intoxication, unspecified; G40.909 Epilepsy, unspecified, not intractable, without status epilepticus; E11.9 Type 2 diabetes mellitus without complications; T14.8XXA Other injury of unspecified body region, initial encounter; E78.5 Hyperlipidemia, unspecified; W19.XXXA Unspecified fall, initial encounter; Z79.899 Other long term (current) drug therapy
CPT/HCPCS: 70450; 72125; 72170; 80048; 80307; 82077; 82140; 82542; 84443; 85025; 99283; J7030

== ENCOUNTER 2024-03-26 23:36 | Emergency (ER) | payer MEDICARE, MEDICAID, SELFPAY ==
[2024-03-26 23:42] VITALS: BMI 24.7
--- NOTE | 2024-03-26 23:42 | CT_ITS ---
INDICATION: Neuro deficit, acute, stroke suspected EXAMINATION: CT BRAIN - CT Head Stroke Protocol W/O Contrast Injection TECHNIQUE: Multiple axial images were obtained of the head without intravenous contrast. The protocol utilizes one or more of the following dose reduction techniques: automated exposure control, adjustment of mA and/or kV according to patient size,and/or use of iterative reconstruction technique. IV Contrast dosage and agent: None. RADIATION DOSAGE (If Supplied By Facility): CTDIvol = ( ) mGy, DLP = ( ) mGycm COMPARISON: No relevant prior comparison study available 01/07/2022 FINDINGS: BRAIN: No acute bleed. No edema. Clement-white matter differentiation is maintained. Arterial calcifications. VENTRICLES AND SULCI: Not dilated. EXTRA-AXIAL: No hemorrhage, fluid collection, or mass. CALVARIUM / SKULL BASE: Unremarkable. FACE/SINUSES: Unremarkable. SOFT TISSUES: Unremarkable. CT/STROKE Brain/Head without Cont IMPRESSION: No acute abnormality. CT angiogram and/or MRI recommended to evaluate for acute infarct as clinically indicated. N.B. : The above Results were Read Back by Cindi Lopez MD to Austin Howard DO, and understanding confirmed on 03/26/2024 23:56:37 (ET). Electronically Signed: Cindi Lopez MD at 23:56 EST ,
--- NOTE | 2024-03-26 23:42 | EKG12_ITS ---
Test Reason : DYSRHYTHMIA Blood Pressure : */* mmHG Vent. Rate : 74 BPM Atrial Rate : 74 BPM P-R Int : 194 ms QRS Dur : 78 ms QT Int : 424 ms P-R-T Axes : 75 44 41 degrees QTcB Int : 470 ms Normal sinus rhythm Normal ECG Confirmed by LOY DAVISON, ILANA ([id number]), advertising editor GONZALO CH ([id number]) on 03/27/2024 9:56:21 AM Referred By: Confirmed By: ILANA GRANADO MD
--- NOTE | 2024-03-26 23:43 | CT_ITS ---
INDICATION: Neuro deficit, acute, stroke suspected EXAMINATION: CTA Head and Neck Stroke W/ Contrast (and W/O if performed) TECHNIQUE: Routine carotid CT angiogram protocol was performed with IV contrast. In addition, images were obtained of the [place]. Sagittal and coronal reconstructed images and 3D reconstructions were reviewed. Individualized dose optimization techniques were used for this CT. IV contrast dosage and agent: 100 mL of Isovue-370. COMPARISON: Noncontrast head CT from earlier same day. FINDINGS: --CTA HEAD: Arteriosclerosis of the cavernous internal carotid arteries with mild stenosis. No evidence of large vessel occlusion. No aneurysm. [place] anatomy is unremarkable. --CTA NECK: AORTIC ARCH AND BRANCHES: No significant stenosis of the visualized portions. RIGHT CCA: No significant stenosis. No dissection. RIGHT ICA: No significant stenosis. No dissection. LEFT CCA: No significant stenosis. No dissection. LEFT ICA: No significant stenosis. No dissection. RIGHT VERTEBRAL ARTERY: No significant stenosis. No dissection. LEFT VERTEBRAL ARTERY: No significant stenosis. No dissection. NECK SOFT TISSUES: Unremarkable. THYROID: Unremarkable. THORACIC INLET: Visualized lung apices are unremarkable. CT/STROKE CTA Head AND Neck W/Con IMPRESSION: 1. Arteriosclerosis of the bilateral cavernous internal carotid arteries with mild stenosis. No other evidence of intracranial arterial flow-limiting stenosis and no evidence of aneurysm or large vessel occlusion. 2. No evidence of flow-limiting stenosis or dissection of the bilateral carotid or vertebral arteries. Electronically Signed: Derek Tejeda DO at 0:14 EST ,
[2024-03-26 23:46] VITALS: BP 129/64; PULSE 72; RESP 16; TEMP 36.6; BMI 24.7
[2024-03-26 23:50] VITALS: BP 129/64; PULSE 72; RESP 18
[2024-03-26 23:50] LABS: Absolute Lymphocyte Count 2.23 X10^3/uL (0.83-4.51); Absolute Neutrophil Count 3.2 X10^3/uL (2.0-7.7); Basophil# 0.06 X10^3/uL; Basophil% 0.9 % (0-1); Eosinophil# 0.43 X10^3/uL; Eosinophils% 6.5 % (0-5); Hematocrit 37.6 % (37-47); Hemoglobin 12.2 g/dL (12.0-15.0); Lymphocyte # 2.23 X10^3/ul (0.83-4.51); Lymphocyte % 33.7 % (19-41); Mean Corp Hgb Conc 32.4 g/dL (32-36); Mean Corpuscular Hgb 31.1 pg (27.0-32.0); Mean Corpuscular Volume 95.9 fL (81-99); Mean Platelet Vol. 10.2 fl (6.2-12.0); Monocyte# 0.63 X10^3/uL; Monocyte% 9.5 % (0-10); NRBC Flagged by Analyzer 0 % (0-5); Neutrophil # 3.24 X10^3/uL (2.7-7.7); Neutrophil % 48.9 % (47-70); Platelet Count 181 K/mm3 (150-450); RBC Distribution Width CV 12.8 % (11.6-14.6); RBC Distribution Width SD 44.5 fl (35.1-43.9); Red Blood Count 3.92 M/mm3 (4.2-5.4); White Blood Count 6.6 K/mm3 (4.4-11.0)
--- NOTE | 2024-03-26 23:52 | RAD_ITS ---
INDICATION: Neuro deficit, acute, stroke suspected EXAMINATION/TECHNIQUE: X-RAY - XR Chest 1 View AP portable. 11:52 PM COMPARISON: Prior study dated: 09/14/2021 FINDINGS: LINES/DEVICES: None. LUNGS: No consolidation. Reticular opacities bilaterally in the upper lobes with apical pleural thickening likely scarring. No pneumothorax. MEDIASTINUM: Unremarkable. CARDIAC SILHOUETTE: Not enlarged. BONES AND SOFT TISSUES: No acute abnormalities. RAD/Chest 1 View IMPRESSION: No evidence of active intrathoracic disease. Electronically Signed: Cindi Lopez MD at 0:19 EST ,
[2024-03-26 23:58] VITALS: BMI 24.7
[2024-03-27 00:05] LABS: Anion Gap 3 (5-15); BUN 14 mg/dL (7-18); BUN/Creat Ratio 15.1 RATIO (10-20); Calcium,Total 8.2 mg/dL (8.5-10.1); Chloride 109 mmol/L (98-107); Creatinine, Serum 0.92 mg/dL (0.55-1.02); EST Glomerular Filtration Rate 64 mL/min (>60); Est Glom Filt Rate - Afr Amer 77 mL/min (>60); Estimated Creatinine Clearance 50.54 ml/min; Glucose 153 mg/dL (74-106); Potassium 3.8 mmol/L (3.5-5.1); Sodium Level 138 mmol/L (136-145)
[2024-03-27 00:07] LABS: International Normalized Ratio 1.2; Prothrombin Time (Protime)PT. 15.2 SECONDS (11.7-14.9)
[2024-03-27 00:09] LABS: Partial Thromboplast Time 25.6 Seconds (24.1-36.2)
[2024-03-27 00:46] VITALS: PULSE 82; RESP 17; O2SAT 99
[2024-03-27 00:57] VITALS: BP 148/81; PULSE 83; RESP 16; O2SAT 98
[2024-03-27 01:00] VITALS: BP 155/93; PULSE 77; RESP 20; O2SAT 99
[2024-03-27 01:15] VITALS: BP 155/93; PULSE 85; RESP 15; TEMP 36.2; O2SAT 95
--- NOTE | 2024-03-27 01:25 | EDS_ITS ---
HPI History of Present Illness Chief Complaint: Stroke Alert Informant: patient, spouse/S.O. and EMS Narrative Narrative: Patient is a 68-year-old female with past medical history of diabetes IBS asthma/COPD and absence seizure's. EMS states they were called by the patient's . They report that she was sitting on the couch and then suddenly became unresponsive. EMS states when they arrived she was minimally responsive but breathing and protecting her airway. They state that she seemed to have generalized weakness and was confused. Upon arrival to the ER the patient is awake and alert and has no focal findings other than mild confusion. She states the last thing she remembers is sitting on the couch and that otherwise she reports feeling normal without sick symptoms and states she has been taking her medications as directed. [facility] Medical History (Updated 03/29/24 @ 04:[address] Austin Howard, ) Diabetes H/O absence seizures Smoking greater than 40 pack years History of hiatal hernia Diabetes mellitus Seizure disorder Hall esophagus Hyperlipidemia Unresolved grief Post-menopausal bleeding SBO (small bowel obstruction) Lumbar radiculopathy, chronic Urinary incontinence Tinea IBS (irritable bowel syndrome) Nausea & vomiting Weight loss Home Medications ?Medication ?Instructions ?Recorded ?Last Taken ?Type Topiramate 100 mg PO DAILY SEIZURES 07/25/19 07/25/19 History albuterol sulfate 90 mcg/actuation 2 puff inhalation BID PRN PRN Sob 07/25/19 07/24/19 History aerosol inhaler &/Or Wheezing metformin 500 mg tablet 500 mg PO DAILY DM 07/25/19 07/25/19 History topiramate 200 mg tablet 200 mg PO QHS 04/09/20 Unknown History buspirone 10 mg tablet 10 mg PO BID 11/06/20 Unknown History oxcarbazepine 150 mg tablet 150 mg PO BID 11/06/20 Unknown History pantoprazole 40 mg tablet,delayed 40 mg PO BID 11/06/20 Unknown History release simvastatin 40 mg tablet 40 mg PO QHS 11/06/20 Unknown History sumatriptan succinate 100 mg tablet 100 mg PO Q2H PRN Migraine Headache 11/06/20 Unknown History fluticasone propionate 50 2 spray intranasal DAILY PRN 09/14/21 Unknown History mcg/actuation nasal allergies spray,suspension loperamide 2 mg capsule 2 mg PO DAILY 09/14/21 Unknown History ondansetron HCl 4 mg tablet 4 mg PO Q8H PRN PRN Nausea 09/14/21 Unknown History Allergy/AdvReac Type Severity Reaction Status Date / Time corn AdvReac Upset Verified 09/14/21 14:47 Stomach Family History Other No pertinent family history Surgical History History of cholecystectomy Social History Smoking Status: Never smoker Tobacco: How many years used: 12 ROS ROS ED Constitutional Constitutional ED: Denies chills or fever(s) Eyes Eyes: Denies change in vision ENT ENT ED: Denies rhinorrhea or sore throat Cardiovascular Cardiovascular: Denies chest pain, palpitations or racing heartbeat Respiratory/Chest Respiratory/Chest: Denies cough or dyspnea Gastrointestinal Gastrointestinal: Denies abdominal pain, diarrhea, nausea or vomiting Genitourinary Genitourinary ED: Denies dysuria Musculoskeletal Musculoskeletal: Denies myalgias Integumentary Denies rash Neurologic Neurologic: Denies headache(s) Hematologic/Lymphatic Hematologic/Lymphatic: Denies easy bleeding or easy bruising EXAM Physical Exam Const Vital Signs: 03/26/24 23:42 03/26/24 23:46 03/26/24 23:50 Temperature 98 F Temperature Source Temporal Pulse Rate 72 72 Respiratory Rate 16 18 Blood Pressure 129/64 H 129/64 H Blood Pressure Mean 85 85 Pulse Ox Oxygen Delivery Method Room Air Room Air Room Air 03/27/24 00:46 03/27/24 00:57 03/27/24 01:00 Temperature Temperature Source Pulse Rate 82 83 77 Respiratory Rate 17 16 20 H Blood Pressure 148/81 H 155/93 H Blood Pressure Mean 101 105 Pulse Ox 99 98 99 Oxygen Delivery Method 03/27/24 01:15 Temperature 97.1 F L Temperature Source Pulse Rate 85 Respiratory Rate 15 Blood Pressure 155/93 H Blood Pressure Mean 113 Pulse Ox 95 Oxygen Delivery Method Positive well nourished and well developed General Appearance ED: well developed; Negative for pallor HEENT HEENT Narrative: There is a faint abrasion to the tip of the patient's tongue consistent or concerning for seizure activity Otherwise no oral lesions no airway edema or compromise or secondary findings to suggest infection in the posterior pharynx Eyes PERRL and EOMs intact bilaterally General Eye ED: Negative for scleral icterus Neck supple and no JVD Neck Narrative: No nuchal rigidity or meningeal signs noted Chest Wall palpation of chest normal Chest Narrative: No bony deformity or crepitance Resp normal respiratory effort Resp Narrative: Breath sounds are diminished throughout with diffuse expiratory wheeze and faint rhonchi in the bilateral bases consistent with history of asthma/COPD but no signs of respiratory distress Cardio regular rate and regular rhythm Rate: other Other Details: Heart is regular rate and rhythm Radial and carotid pulses are equal and symmetric GI normal to inspection, nondistended, normoactive bowel sounds, non-tender, non- distended and no masses GI Narrative: No voluntary guarding or rigidity or pulsatile mass Auscultation: normoactive bowel sounds Palpation: soft Extremity normal to inspection Extremity Narrative: No asymmetric edema no pitting edema negative Homans' sign bilaterally Neuro CN's II-XII intact bilaterally and no sensory deficits noted Neuro Narrative: Patient is awake and alert to person and place she is disoriented to time GCS is 15 Cranial nerves II through XII are grossly intact without focal neurologic deficit No pronator drift no dysmetria no truncal ataxia Patient received NIH stroke scale score of 1 secondary to her confusion (please note EMS reports that this is her baseline) Sensorium / Orientation: alert Motor Exam: strength 5/5 throughout Psych mental status grossly normal Skin no rashes or lesions noted General Skin Exam: Negative for jaundice or pallor MDM MDM MDM Narrative Medical decision making narrative: Patient arrived to the hospital with stable vitals. She was awake and alert at her baseline mental status without focal neurologic deficit. She does have a history of seizure disorder. Based on her spontaneous improvement and small area of tongue injury this was most likely a breakthrough seizure. However as and EMS reported complete unresponsiveness and confusion a stroke alert was continued since it was activated by EMS prior to arrival. The patient CT/CTA did not reveal any acute findings. Telemetry neurology also evaluated the patient and agree that based on her physical exam and history there is no need for TNK. I performed a workup to check for potential electrolyte abnormality or infectious cause of her altered mental status. However labs revealed no clinically significant findings. The patient had no further seizure activity while in the ER and return to her baseline mental status. Therefore do not feel there is need for further evaluation in the ER or admission and she is otherwise safe for discharge History & Record Review Discussion w/independent historian: EMS personnel, Patient and Family Lab Data Attestation: I reviewed the patient's lab results. Labs: Laboratory Results - last 24 hr 03/26/24 23:45 WBC 6.6 RBC 3.92 L Hgb 12.2 Hct 37.6 MCV 95.9 MCH 31.1 MCHC 32.4 RDW Std Deviation 44.5 H RDW Coeff of Debra 12.8 Plt Count 181 MPV 10.2 Immature Gran % (Auto) 0.500 Neut % (Auto) 48.9 Lymph % (Auto) 33.7 Garland % (Auto) 9.5 Eos % (Auto) 6.5 H Baso % (Auto) 0.9 Absolute Neuts (auto) 3.2 Absolute Lymphs (auto) 2.23 Nucleated RBC % 0 PT 15.2 H INR 1.2 APTT 25.6 Sodium 138 Potassium 3.8 Chloride 109 H Carbon Dioxide 25.0 Anion Gap 3 L BUN 14 Creatinine 0.92 Estim Creat Clear Calc 50.54 Est GFR (MDRD) Af Amer 77 Est GFR (MDRD) Non-Af 64 BUN/Creatinine Ratio 15.1 Glucose 153 H Calcium 8.2 L Radiography Diagnostic Testing: Clinical Impression(s) from Imaging Studies Brain CT 03/26/24 23:42 IMPRESSION: No acute abnormality. CT angiogram and/or MRI recommended to evaluate for acute infarct as clinically indicated. N.B. : The above Results were Read Back by Cindi Lopez MD to Austin Howard DO, and understanding confirmed on 03/26/2024 23:56:37 (ET). Electronically Signed: Cindi Lopez MD at 23:56 EST , Head/Neck CTA 03/26/24 23:43 IMPRESSION: 1. Arteriosclerosis of the bilateral cavernous internal carotid arteries with mild stenosis. No other evidence of intracranial arterial flow-limiting stenosis and no evidence of aneurysm or large vessel occlusion. 2. No evidence of flow-limiting stenosis or dissection of the bilateral carotid or vertebral arteries. Electronically Signed: Derek Tejeda DO at 0:14 EST , Chest X-Ray 03/26/24 23:52 IMPRESSION: No evidence of active intrathoracic disease. Electronically Signed: Cindi Lopez MD at 0:19 EST , Chest x-ray as interpreted by the emergency medicine physician reveals no acute infiltrate pneumothorax or pleural effusion Management Discussion w/another healthcare provider: [employer] Sales Consultant Discharge Plan Triage Chief Complaint: Stroke Alert ED Provider: Austin Howard Dx/Rx/DC Orders Clinical Impression: Breakthrough seizure, Diabetes mellitus, Asthma-COPD overlap syndrome, Hyperlipidemia Instructions: ED Seizure, Recurrent (Adult) Prescriptions: No Action metformin 500 MG tablet 500 mg PO DAILY albuterol sulfate 18 GM HFA aerosol inhaler 2 puff INHALATION BID PRN PRN (Reason: Sob &/Or Wheezing) Topiramate 100 MG tablet 100 mg PO DAILY topiramate 200 MG tablet 200 mg PO QHS oxcarbazepine 150 mg Tablet 150 mg PO BID sumatriptan succinate 100 mg Tablet 100 mg PO Q2H MDD 2 tabs PRN (Reason: Migraine Headache) simvastatin 40 mg Tablet 40 mg PO QHS pantoprazole 40 mg Tablet,Delayed Release (Dr/Ec) 40 mg PO BID buspirone 10 mg Tablet 10 mg PO BID fluticasone propionate 50 mcg/actuation spray,suspension 2 spray INTRANASAL DAILY PRN (Reason: allergies) ondansetron HCl 4 mg tablet 4 mg PO Q8H PRN PRN (Reason: Nausea) Patient Comments: 2po qday loperamide 2 mg capsule 2 mg PO DAILY Primary Care Provider: Maynor Singh Referrals: Maynor Singh MD [Primary Care Provider] - Activity Restrictions/Additional Instructions: Your workup today did not show signs of stroke but your exam and presentation are more consistent with a breakthrough seizure. Continue all of your home medications as directed by your doctor and return to the ER should you have any further concerns. Print Language: Congolese Disposition Disposition: Home, Self Care Discharge Date/Time: 03/27/24 01:46
[2024-03-30 21:07] LABS: Topiramate 14.9 ug/mL (2.0-25.0); Trileptal-Oxcarbazepine 6 ug/mL (10-35)
== END 2024-03-27 01:46 | disposition home or self-care (01) ==
PROVIDERS: Emergency Provider Emergency Medicine; PCP Family Medicine; Visit Provider Emergency Medicine
DX: G40.909 Epilepsy, unspecified, not intractable, without status epilepticus (principal); J44.9 Chronic obstructive pulmonary disease, unspecified; E11.9 Type 2 diabetes mellitus without complications; E78.5 Hyperlipidemia, unspecified; Z79.84 Long term (current) use of oral hypoglycemic drugs; Z79.899 Other long term (current) drug therapy
CPT/HCPCS: 70450; 70496; 70498; 71045; 80048; 80201; 82542; 85025; 85610; 85730; 93005; 99285; Q9967; A4216

== ENCOUNTER 2025-01-05 10:56 | Emergency (ER) | payer MEDICARE, MEDICAID, SELFPAY ==
[2025-01-05] VITALS (9 sets, daily range): BP systolic 137–152; BP diastolic 71–86; PULSE 72–115; RESP 16–20; TEMP 36.4–37; O2SAT 99–100; BMI 25.0
--- NOTE | 2025-01-05 11:20 | CT_ITS ---
PROCEDURE: BRAIN/HEAD WITHOUT CONTRAST 01/05/2025 REASON FOR EXAM: PROLONGED POSTICTAL 2, 10 minute seizures this morning. TECHNIQUE: Procedure Code: CTBR Modality: CT Procedure: BRAIN/HEAD WITHOUT CONTRAST Coronal and Sagittal reconstruction series were provided. One or more dose reduction techniques were used (e.g., Automated exposure control, adjustment of the mA and/or kV according to patient size, use of iterative reconstruction technique. RADIATION DOSE SUMMARY: CTDlvol: 44.99 mGy DLP: 779.24 mGycm COMPARISON: Prior study dated March 26, 2024. FINDINGS: Brain: Within normal limits for age. Stable 1 cm ossified density in the anterior aspect of the right frontal bone. This may represent a small calcified meningioma versus focal prominence of the underlying inner table of the frontal bone. CSF Spaces: Mild generalized cerebral atrophy Sinuses/Mastoids: Clear at visualized levels Bones: Hyperostosis frontalis interna. CT/Brain/Head without Contrast IMPRESSION: NO SIGNIFICANT CHANGE SINCE THE PRIOR EXAM Reading Location: [id number]
[2025-01-05 11:30] LABS: Hematocrit 40.9 % (37-47); Hemoglobin 13.5 g/dL (12.0-15.0); Immature Granulocytes Count 0.010 X10^3/uL (0.0-0.0); Mean Corp Hgb Conc 33.0 g/dL (32-36); Mean Corpuscular Volume 95.6 fL (81-99); Mean Platelet Vol. 10.3 fl (6.2-12.0); NRBC Flagged by Analyzer 0 % (0-5); Platelet Count 166 K/mm3 (150-450); RBC Distribution Width CV 12.9 % (11.6-14.6); RBC Distribution Width SD 45.3 fl (35.1-43.9); Red Blood Count 4.28 M/mm3 (4.2-5.4); White Blood Count 4.4 K/mm3 (4.4-11.0)
--- NOTE | 2025-01-05 11:51 | EDS_ITS ---
HPI History of Present Illness Chief Complaint: Seizure Narrative Narrative: Patient is a 68-year-old female presenting the emergency department for breakthrough seizure. Patient has a past medical history of a seizure disorder and is on Topiramate and oxcarbazepine. Patient reports there has been no recent changes to her medication type or dosage. States that she has been taking her medications as prescribed. Patient states that she had 2 breakthrough seizures today that were witnessed by her [id number] and sister. They are not at bedside to provide history. Patient denies any focal neurologic deficits including weakness or numbness. Denies any fevers. Denies any chest pain, shortness of breath or abdominal pain. She has been feeling well and at baseline prior to the seizures today. [facility] Medical History Diabetes H/O absence seizures Smoking greater than 40 pack years History of hiatal hernia Diabetes mellitus Seizure disorder Hall esophagus Hyperlipidemia Unresolved grief Post-menopausal bleeding SBO (small bowel obstruction) Lumbar radiculopathy, chronic Urinary incontinence Tinea IBS (irritable bowel syndrome) Nausea & vomiting Weight loss Home Medications ?Medication ?Instructions ?Recorded ?Last Taken ?Type Topiramate 100 mg PO DAILY SEIZURES 07/25/19 History albuterol sulfate 90 mcg/actuation 2 puff inhalation B ID PRN PRN Sob 07/25/19 07/24/19 History aerosol inhaler &/Or Wheezing metformin 500 mg tablet 500 mg PO DAILY DM 07/25/19 07/25/19 History topiramate 200 mg tablet 200 mg PO QHS 04/09/20 Unkno wn History buspirone 10 mg tablet 10 mg PO BID 11/06/20 Unknow n History oxcarbazepine 150 mg tablet 150 mg PO BID 11/06/20 Unk nown History pantoprazole 40 mg tablet,delayed 40 mg PO BID 1 Unknown History release simvastatin 40 mg tablet 40 mg PO QHS 11/06/20 Unknow n History sumatriptan succinate 100 mg tablet 100 mg PO Q2H PRN Migraine Headache 11/06/20 Unknown History fluticasone propionate 50 2 spray intranasal DAILY PRN 09/14/21 Unknown History mcg/actuation nasal allergies spray,suspension loperamide 2 mg capsule 2 mg PO DAILY 09/14/21 Unkno wn History ondansetron HCl 4 mg tablet 4 mg PO Q8H PRN PRN Nausea 09/14/21 Unknown History Allergy/AdvReac Type Severity Reaction Status Date / Time corn AdvReac Upset Verified 01/05/25 11:02 Stomach Family History Other No pertinent family history Surgical History History of cholecystectomy Social History Smoking Status: Former smoker quit date: 05/10/12 Tobacco: How many years used: 12 ROS ROS ED ROS Narrative See HPI EXAM Physical Exam Narrative Exam Narrative: Vital signs: Reviewed General: Alert and orientedx2, disoriented to time. No acute distress HEENT: Head is normocephalic and atraumatic, sinuses nontender, pupils equal round and reactive. Nares are patent. Oropharynx and throat exams normal. Neck: Supple without lymphadenopathy nontender. No midline cervical spinal tenderness to palpation. No step-offs or deformities. Cardiovascular: Regular rate and rhythm, no murmurs. No rubs or gallops. Normal S1 and S2 Respiratory: Clear to auscultation bilaterally. No wheezes, rales, rhonchi Abdominal: Soft and nontender. Normal bowel sounds. No guarding or rebound. Nonsurgical abdomen Extremities: No tenderness. No bruising. Normal range of motion. Normal sensation. Skin: No rash or redness. Neurological: Cranial nerves II through XII are grossly intact. Normal strength and sensation. Normal cerebellar function The rest of the physical exam is unremarkable Const Vital Signs: 01/05/25 10:57 01/05/25 11:56 01/05/25 12:00 Temperature 97.5 F L Temperature Source Oral Pulse Rate 91 95 91 Respiratory Rate 20 H 20 H 16 Blood Pressure 137/76 H 152/72 H 152/72 H Blood Pressure Mean 96 98 98 Pulse Ox 100 100 100 Oxygen Delivery Method Room Air Room Air Room Air 01/05/25 14:00 Temperature Temperature Source Pulse Rate 115 H Respiratory Rate 20 H Blood Pressure 150/72 H Blood Pressure Mean 98 Pulse Ox 100 Oxygen Delivery Method Room Air NIHSS NIHSS Initial: 1a Level of Consciousness: 0 1b LOC Questions (Score 2 if aphasic/stupor): 0 1c LOC Commands (Only score 1st attempt): 0 2 Best Gaze (If aphasic, use reflexive mvmts.): 0 3 Visual: 0 4 Facial Palsy: 0 5 Motor Arm Right (UN = amputation/fusion): 0 5 Motor Arm Left: 0 6 Motor Leg Right: 0 6 Motor Leg Left: 0 7 Limb ataxia (Only + if out of proportion): 0 8 Sensory (Aphasia/stupor=0 or 1, coma=2): 0 9 Best Language: 0 10 Dysarthria (mute, coma=2, intubated=UN): 0 11 Extinction and Inattention (only scored if +): 0 Total Score: 0 MDM MDM MDM Narrative Medical decision making narrative: Patient is a 69-year-old female presenting to emergency department for a breakthrough seizure. Patient was seen and examined. Vitals are stable. Patient resting in bed comfortably in no acute distress. Patient has a history of seizures, this is a breakthrough seizure reports that the last breakthrough seizure was more than a year ago. No recent changes to her medication and she has been compliant. Levels of her seizure medications were ordered. She is alert and oriented x 2, reports that sometimes she is postictal. I attempted to call the [id number] who witnessed the seizure but he did not answer. Given limited history and the patient's prolonged postictal state will obtain CT brain and labs including urinalysis. CBC with no leukocytosis and a normal hemoglobin. BMP with no significant abnormalities. Glucose of 213. Urinalysis with no evidence of infection. CT brain with no intracranial abnormalities. Was notified by nursing staff that the patient was having seizure-like episodes. I evaluated her at bedside. Ativan was verbally ordered, by the time Ativan was being flushed, and her seizure was stopping. She was postictal afterwards. Lactic ordered and pending. Given the patient had 2 seizures at home and 1 here with no underlying cause, I recommended admission. I attempted to admit here however the hospitalist, Dr. Ambrosio, stated with this many seizures that she should be transferred somewhere with inpatient neurology consult and continuous EEG monitoring. [facility] They state that the patient under Dr. Mcgregor. Patient and son at bedside agreeable with the plan. Will be transported when bed available. Clinical impression: seizure History & Record Review Discussion w/independent historian: Patient and Family Additional record(s) reviewed:: Prior inpatient record and Prior ED visit Lab Data Attestation: I reviewed the patient's lab results. Labs: Laboratory Results - last 24 hr 01/05/25 01/05/25 11:00 12:31 WBC 4.4 RBC 4.28 Hgb 13.5 Hct 40.9 MCV 95.6 MCH 31.5 MCHC 33.0 RDW Std Deviation 45.3 H RDW Coeff of Debra 12.9 Plt Count 166 MPV 10.3 Immature Gran % (Auto) 0.200 Neut % (Auto) 56.7 Lymph % (Auto) 28.5 [place] % (Auto) 8.4 Eos % (Auto) 5.3 H Baso % (Auto) 0.9 Absolute Neuts (auto) 2.5 Absolute Lymphs (auto) 1.25 Nucleated RBC % 0 Sodium 135 Potassium 3.7 Chloride 104 Carbon Dioxide 18.9 L Anion Gap 13 BUN 14 Creatinine 0.86 Estim Creat Clear Calc 57.81 Est GFR (MDRD) Non-Af 73 BUN/Creatinine Ratio 16.6 Glucose 213 H Calcium 8.8 Urine Color Yellow Urine Clarity Clear Urine pH 6.5 Ur Specific [place] 1.015 Urine Protein 30 H Urine Glucose (UA) Normal Urine Ketones Negative Urine Occult Blood Negative Urine Nitrite Negative Urine Bilirubin Negative Urine Urobilinogen Normal Ur Leukocyte Esterase 25 H Urine RBC 0 SEEN Urine WBC 0-5 SEEN Ur Squamous Epith Cells 0-5 SEEN Urine Bacteria 0 SEEN Urine Mucus 0 SEEN Radiography Diagnostic Testing: Clinical Impression(s) from Imaging Studies Brain CT 01/05/25 11:20 IMPRESSION: NO SIGNIFICANT CHANGE SINCE THE PRIOR EXAM Reading Location: [id number] Discharge Plan Triage Chief Complaint: Seizure ED Provider: Lois Cohn Dx/Rx/DC Orders Prescriptions: No Action metformin 500 MG tablet 500 mg PO DAILY albuterol sulfate 18 GM HFA aerosol inhaler 2 puff INHALATION BID PRN PRN (Reason: Sob &/Or Wheezing) Topiramate 100 MG tablet 100 mg PO DAILY topiramate 200 MG tablet 200 mg PO QHS oxcarbazepine 150 mg Tablet 150 mg PO BID sumatriptan succinate 100 mg Tablet 100 mg PO Q2H MDD 2 tabs PRN (Reason: Migraine Headache) simvastatin 40 mg Tablet 40 mg PO QHS pantoprazole 40 mg Tablet,Delayed Release (Dr/Ec) 40 mg PO BID buspirone 10 mg Tablet 10 mg PO BID fluticasone propionate 50 mcg/actuation spray,suspension 2 spray INTRANASAL DAILY PRN (Reason: allergies) ondansetron HCl 4 mg tablet 4 mg PO Q8H PRN PRN (Reason: Nausea) Patient Comments: 2po qday loperamide 2 mg capsule 2 mg PO DAILY Primary Care Provider: Maynor Singh Referrals: Maynor Singh MD [Primary Care Provider] - Print Language: Croatian
[2025-01-05 12:05] LABS: Anion Gap 13 (5-15); BUN 14 mg/dL (4-19); BUN/Creat Ratio 16.6 RATIO (10-20); Calcium,Total 8.8 mg/dL (7.6-11.0); Carbon Dioxide 18.9 mmol/L (21.0-32.0); Chloride 104 mmol/L (98-108); Estimated Creatinine Clearance 57.81 ml/min (50-250); Glucose 213 mg/dL (70-99); Potassium 3.7 mmol/L (3.3-5.1)
--- NOTE | 2025-01-05 12:22 | ED.RN ---
at 1215 patient hit their call light and requested to use the restroom to urinate. This RN ambulated pt to the restroom with assistance of a cane, which is patient's baseline. In the restroom patient was educated to pull the call string if they felt dizzy or needed assistance. After urinating patient pulled the call cord in the restroom and this RN responded. pt stated she didn't feel well and RN Angelika Roldan brought a wheelchair to help patient get back to her room while this RN stayed with the patient. When patient was back in bed she began having seizure like activity and doctor alberto was called to bedside. Dr. Cohn gave verbal order for 1 mg of ativan which was pulled and given by RN Az Hart. patient has returned to baseline at this time showing no s/sx of distress and mild confusion about what happened after she walked to the restroom. vital signs stable. willl continue to monitor
[2025-01-05 12:36] LABS: Mucous, Urine 0 SEEN /hpf (<or=2+); Red Blood Cells-Urine 0 SEEN /hpf (0-5)
[2025-01-05 12:37] LABS: Color, Urine Yellow (Yellow); Glucose, Dipstick Normal (Normal); Ketone-Dipstick Negative (Negative); Leukocyte Esterase-Dipstick 25 /ul (Negative); Nitrite-Dipstick Negative (Negative); Occult Blood-Urine Negative /ul (Negative); Protein-Dipstick 30 mg/dl (Negative); Specific Gravity, Urine 1.015 (1.002-1.030); Urine Bilirubin Dipstick Negative (Negative)
[2025-01-05 12:45] LABS: Squamous Epithelial Cells - UA 0-5 SEEN /hpf (5-10)
--- NOTE | 2025-01-05 15:05 | PCA ---
GOT A BED FOR THE PATIENT. GOING TO [address] [place] [address] BED @ CALLED FOR RIDE @ [phone] ETA IS [phone]
--- NOTE | 2025-01-05 16:41 | ED.RN ---
at 1639 this RN walked into the patients room and saw the patient presenting with seizure like activity. physician was called to bedside and 1mg IV ativan was given. vital signs were inconsistent with seizure, as was the exam by physician. no current signs of distress. vital signs stable at this time.
[2025-01-10 09:08] LABS: Trileptal-Oxcarbazepine 16 ug/mL (10-35)
== END 2025-01-05 17:57 | disposition short-term general hospital (02) ==
LOC: ED 11:50
PROVIDERS: Emergency Provider Student in an Organized Health Care Education/Training Program; PCP Family Medicine; Visit Provider Student in an Organized Health Care Education/Training Program
DX: R56.9 Unspecified convulsions (principal); E11.9 Type 2 diabetes mellitus without complications; E78.5 Hyperlipidemia, unspecified; Z87.891 Personal history of nicotine dependence; Z79.51 Long term (current) use of inhaled steroids; Z79.84 Long term (current) use of oral hypoglycemic drugs; Z79.899 Other long term (current) drug therapy
CPT/HCPCS: 70450; 80048; 80201; 81001; 82542; 83605; 85025; 96374; 96376; 99285; A4216

== ENCOUNTER 2025-02-19 21:16 | Emergency (ER) | payer MEDICARE, MEDICAID, SELFPAY ==
[2025-02-19 21:21] VITALS: BP 132/70; PULSE 77; RESP 13; TEMP 36.5; O2SAT 98; BMI 24.7
--- NOTE | 2025-02-19 21:47 | EX.ED.DYSGE1 ---
HPI History of Present Illness Chief Complaint: Seizure Narrative Narrative: Patient is a 69-year-old female with past medical history of IBS, hyperlipidemia, seizures, diabetes, tobacco use who presented to the emergency department with a chief complaint of seizure. Patient states that the last thing she remembers is watching a movie and then waking up and was here in the hospital. Per EMS she her last seizure was noted to be about a month ago and according to them she had been having more frequent seizures and she is scheduled to see her neurologist in the upcoming near future. Patient has no complaints or self. [facility] Medical History (Updated 02/19/25 @ 23:[address] Gerardo Fernandez, DO) Diabetes H/O absence seizures Smoking greater than 40 pack years History of hiatal hernia Diabetes mellitus Seizure disorder Hall esophagus Hyperlipidemia Unresolved grief Post-menopausal bleeding SBO (small bowel obstruction) Lumbar radiculopathy, chronic Urinary incontinence Tinea IBS (irritable bowel syndrome) Nausea & vomiting Weight loss Home Medications ?Medication ?Instructions ?Recorded ?Last Taken ?Type Topiramate 200 mg PO BID SEIZURES 07/25/19 01/05/25 History albuterol sulfate 90 mcg/actuation 2 puff inhalation BID PRN PRN Sob 07/25/19 01/05/25 History aerosol inhaler &/Or Wheezing metformin 500 mg tablet 500 mg PO DAILY DM 07/25/19 01/05/25 History topiramate 200 mg tablet 200 mg PO QHS 04/09/20 Unknown History buspirone 10 mg tablet 10 mg PO BID 11/06/20 01/05/25 History oxcarbazepine 150 mg tablet 300 mg PO BID 11/06/20 Unknown History fluticasone propionate 50 2 spray intranasal DAILY PRN 09/14/21 01/05/25 History mcg/actuation nasal allergies spray,suspension loperamide 2 mg capsule 2 mg PO DAILY 09/14/21 01/05/25 History atorvastatin 40 mg tablet 40 mg PO DAILY 02/19/25 Unknown History famotidine 20 mg tablet 20 mg PO DAILY 02/19/25 Unknown History levetiracetam 500 mg tablet 500 mg PO BID #60 tabs 02/19/25 Unknown Rx Allergy/AdvReac Type Severity Reaction Status Date / Time corn AdvReac Upset Verified 02/19/25 23:35 Stomach Family History Other No pertinent family history Surgical History History of cholecystectomy Social History Smoking Status: Former smoker quit date: 05/10/12 Tobacco: How many years used: 12 ROS ROS ED ROS Narrative Constitutional: Denies headache, lightness, dizziness Eyes: Denies double vision blurry vision Cardiovascular: Denies chest pain Respiratory: Denies shortness of breath Abdomen: Denies abdominal pain nausea vomit diarrhea : Denies urinary symptoms Neurological: Denies any numbness, weakness, tingling Musculoskeletal: Denies back pain Skin: Denies any rashes or lesions EXAM Physical Exam Narrative Exam Narrative: General: Patient lying in bed rest comfortably did not appear to be in acute distress Head: Atraumatic, normocephalic Eyes: PERRL bilaterally, EOMI bilateral, no conjunctival injection noted Neck: Soft, supple, trachea midline Cardiovascular: Regular rate and rhythm Respiratory: Clear to auscultation bilaterally Abdomen: Soft, nondistended, no tenderness palpation Extremities: +5/5 strength noted in the bilateral upper and lower extremities Neurological: Patient following commands knew that she was at [facility] she was confused on the year and the season Skin: Warm, dry, intact no rashes or lesions noted Const Vital Signs: 02/19/25 21:21 02/19/25 22:23 02/19/25 23:02 Temperature 97.7 F L Temperature Source Oral Pulse Rate 77 76 78 Respiratory Rate 13 20 H 12 Blood Pressure 132/70 H 139/72 H 134/78 H Blood Pressure Mean 90 94 96 Pulse Ox 98 100 100 Oxygen Delivery Method Room Air Room Air MDM MDM MDM Narrative Medical decision making narrative: Patient is a 69-year-old female who presents to the emergency department chief complaint of seizure. On the differential diagnose includes but limited to intracranial mass, intracranial hemorrhage, electrolyte abnormality, breakthrough seizure. Once workup is obtained and reviewed she will be reevaluated. Patient's CBC was reviewed and showed no evidence leukocytosis white blood count normal at 6, hemoglobin 12.4, plate count was noted be 144. Patient sodium was 132, potassium was 3.9, creatinine was noted to be 0.89. Patient lactic acid normal at 1.4, AST and ALT were 31 and 16 respectively lipase normal at 22. Patient urinalysis reviewed showed no evidence of infection. Patient CT head and brain without contrast showed no acute intracranial abnormalities. Patient's glucose was noted to be 109. Patient was given 3.5 g of Keppra here in the emergency department. Patient has not had any seizures she is still confused somewhat but much more alert and oriented. I reached out to the patient's sister who she lives with and her [id number] multiple times and have been unable to reach them. Patient case will be signed out to overnight provider to see if nursing staff can reach them before discharge. We will plan to discharge her and have her follow-up at her scheduled appointment with neurology we will place her on Keppra 500 twice daily as well a prescription was sent to the pharmacy. See addendum for further details. Lab Data Labs: Laboratory Results - last 24 hr 02/19/25 02/19/25 21:38 22:39 WBC 6.0 RBC 3.84 L Hgb 12.4 Hct 36.6 L MCV 95.3 MCH 32.3 H MCHC 33.9 RDW Std Deviation 44.7 H RDW Coeff of Debra 12.9 Plt Count 144 L MPV 10.6 Immature Gran % (Auto) 0.300 Neut % (Auto) 60.0 Lymph % (Auto) 22.1 [place] % (Auto) 10.1 H Eos % (Auto) 7.0 H Baso % (Auto) 0.5 Absolute Neuts (auto) 3.6 Absolute Lymphs (auto) 1.33 Nucleated RBC % 0 Sodium 132 L Potassium 3.9 Chloride 101 Carbon Dioxide 19.1 L Anion Gap 11 BUN 15 Creatinine 0.89 Estim Creat Clear Calc 51.52 Est GFR (MDRD) Non-Af 71 BUN/Creatinine Ratio 17.1 Glucose 109 H Lactic Acid 1.4 Calcium 8.7 Total Bilirubin 0.28 AST 31 ALT 16 Alkaline Phosphatase 118 H Total Protein 7.3 Albumin 4.0 Globulin 3.3 Albumin/Globulin Ratio 1.2 Lipase 22 Urine Color Yellow Urine Clarity Clear Urine pH 7.0 Ur Specific [place] 1.005 Urine Protein Negative Urine Glucose (UA) Normal Urine Ketones Negative Urine Occult Blood Negative Urine Nitrite Negative Urine Bilirubin Negative Urine Urobilinogen Normal Ur Leukocyte Esterase Negative Urine RBC 0 SEEN Urine WBC 0 SEEN Ur Squamous Epith Cells 0 SEEN Urine Bacteria 0 SEEN Urine Mucus 0 SEEN Radiography Diagnostic Testing: Clinical Impression(s) from Imaging Studies Brain CT 02/19/25 22:28 IMPRESSION: No acute intracranial abnormality. Reading Location: [address] Discharge Plan Triage Chief Complaint: Seizure ED Provider: Gerardo Fernandez Dx/Rx/DC Orders Clinical Impression: Seizure, Diabetes mellitus, IBS (irritable bowel syndrome) Prescriptions: New levetiracetam 500 mg tablet 500 mg PO BID Qty: 60 0RF No Action metformin 500 MG tablet 500 mg PO DAILY albuterol sulfate 18 GM HFA aerosol inhaler 2 puff INHALATION BID PRN PRN (Reason: Sob &/Or Wheezing) Topiramate 200 mg tablet 200 mg PO BID topiramate 200 MG tablet 200 mg PO QHS oxcarbazepine 150 mg Tablet 300 mg PO BID buspirone 10 mg Tablet 10 mg PO BID fluticasone propionate 50 mcg/actuation spray,suspension 2 spray INTRANASAL DAILY PRN (Reason: allergies) loperamide 2 mg capsule 2 mg PO DAILY atorvastatin 40 mg tablet 40 mg PO DAILY famotidine 20 mg tablet 20 mg PO DAILY Primary Care Provider: Maynor Singh Referrals: Maynor Singh MD [Primary Care Provider, Medical] Activity Restrictions/Additional Instructions: Follow-up with your neurologist in the outpatient setting. 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 Your blood work and your CT of your head did not show acute findings. Return with worsening symptoms or other concerns. Print Language: Greek Disposition Disposition: Home, Self Care
[2025-02-19 22:10] LABS: Hematocrit 36.6 % (37-47); Hemoglobin 12.4 g/dL (12.0-15.0); Immature Granulocytes Count 0.020 X10^3/uL (0.0-0.0); Mean Corp Hgb Conc 33.9 g/dL (32-36); Mean Corpuscular Volume 95.3 fL (81-99); Mean Platelet Vol. 10.6 fl (6.2-12.0); NRBC Flagged by Analyzer 0 % (0-5); Platelet Count 144 K/mm3 (150-450); RBC Distribution Width CV 12.9 % (11.6-14.6); RBC Distribution Width SD 44.7 fl (35.1-43.9); Red Blood Count 3.84 M/mm3 (4.2-5.4); White Blood Count 6.0 K/mm3 (4.4-11.0)
[2025-02-19 22:23] VITALS: BP 139/72; PULSE 76; RESP 20; O2SAT 100
[2025-02-19] MEDS: levETIRAcetam IV 3,500 MG in 0.9% Normal Saline (500mL Bag) 500 ML 999 MG IV (22:23)
--- NOTE | 2025-02-19 22:28 | CT_ITS ---
PROCEDURE: BRAIN/HEAD WITHOUT CONTRAST 02/19/2025 REASON FOR EXAM: FREQUENT SEIZURES BREAKTHROUGH TECHNIQUE: Procedure Code: CTBR Modality: CT Procedure: BRAIN/HEAD WITHOUT CONTRAST Coronal and Sagittal reconstruction series were provided. One or more dose reduction techniques were used (e.g., Automated exposure control, adjustment of the mA and/or kV according to patient size, use of iterative reconstruction technique. COMPARISON: 01/05/2025. FINDINGS: The ventricles are normal in size and midline in position. No evidence of acute hemorrhage or infarction. No extra-axial blood or fluid collections. The paranasal sinuses and mastoid air cells are clear. The calvarial vault and skull base are intact. Stable cm ossified density in the anterior aspect of the right frontal bone. CT/Brain/Head without Contrast IMPRESSION: No acute intracranial abnormality. Reading Location: [id number]
[2025-02-19 22:45] LABS: Lipase 22 U/L (13-75)
[2025-02-19 22:50] LABS: Mucous, Urine 0 SEEN /hpf (<or=2+); Red Blood Cells-Urine 0 SEEN /hpf (0-5); Squamous Epithelial Cells - UA 0 SEEN /hpf (5-10)
[2025-02-19 22:51] LABS: Color, Urine Yellow (Yellow); Glucose, Dipstick Normal (Normal); Ketone-Dipstick Negative (Negative); Leukocyte Esterase-Dipstick Negative /ul (Negative); Nitrite-Dipstick Negative (Negative); Occult Blood-Urine Negative /ul (Negative); Protein-Dipstick Negative (Negative); Specific Gravity, Urine 1.005 (1.002-1.030); Urine Bilirubin Dipstick Negative (Negative)
[2025-02-19 22:59] LABS: AST(SGOT) 31 U/L (<=31); Alanine Aminotransfer ALT/SGPT 16 U/L (<=34); Albumin, Serum 4.0 g/dL (3.4-4.8); Alkaline Phosphatase 118 U/L (35-104); Anion Gap 11 (5-15); BUN 15 mg/dL (4-19); BUN/Creat Ratio 17.1 RATIO (10-20); Calcium,Total 8.7 mg/dL (7.6-11.0); Carbon Dioxide 19.1 mmol/L (21.0-32.0); Chloride 101 mmol/L (98-108); Estimated Creatinine Clearance 51.52 ml/min (50-250); Globulin 3.3 g/dL (2.2-4.2); Glucose 109 mg/dL (70-99); Potassium 3.9 mmol/L (3.3-5.1)
[2025-02-19 23:02] VITALS: BP 134/78; PULSE 78; RESP 12; O2SAT 100
[2025-02-19] MEDS: 0.9% Normal Saline (1000mL) 1,000 ML 999 ML IV (23:02)
[2025-02-20 00:07] VITALS: BP 138/94; PULSE 68; RESP 16; O2SAT 99
[2025-02-20 00:59] VITALS: BP 118/69; PULSE 70; RESP 18; TEMP 36.1; O2SAT 97
== END 2025-02-20 00:59 | disposition home or self-care (01) ==
PROVIDERS: Emergency Provider Emergency Medicine; PCP Family Medicine; Visit Provider Emergency Medicine
DX: R56.9 Unspecified convulsions (principal); E11.9 Type 2 diabetes mellitus without complications; E78.5 Hyperlipidemia, unspecified; K58.9 Irritable bowel syndrome, unspecified; Z87.891 Personal history of nicotine dependence; Z79.899 Other long term (current) drug therapy
CPT/HCPCS: 70450; 80053; 81001; 83605; 83690; 85025; 96361; 96365; 99285; P9612; A4216